=== PATIENT | male | born 1940 | race Caucasian/White ===

== ENCOUNTER 2024-04-20 10:04 | Inpatient (IN) | payer MEDICARE ==
[2024-04-19 13:11] VITALS: PULSE 51; RESP 15; O2SAT 97
[2024-04-19 13:47] LABS: BILIRUBIN,URINE NEGATIVE (Neg); CLARITY,URINE CLEAR (Clear); COLOR,URINE YELLOW (Yellow); GLUCOSE, URINE NEGATIVE (Neg); KETONES,URINE NEGATIVE (Neg); LEUKOCYTE ESTERASE ,URINE NEGATIVE (Neg); NITRITES, URINE NEGATIVE (Neg); OCCULT BLOOD,URINE NEGATIVE (Neg); PROTEIN,URINE NEGATIVE (Neg); UROBILINOGEN,URINE 0.2 E.U/dL (0.2-1.0)
[2024-04-19 13:50] LABS: UA COLLECTION TYPE VOIDED
[2024-04-19 13:53] LABS: BASOPHILS # (AUTO) 0.1 X10'3 (0-0.2); EOSINOPHILS # (AUTO) 0.3 X10'3 (0-0.9); EOSINOPHILS % (AUTO) 5.2 % (0-6); LYMPHOCYTES # (AUTO) 1.4 X10'3 (1.1-4.8); LYMPHOCYTES % (AUTO) 22.3 % (21-51); MEAN CORPUSCULAR HEMOGLOBIN 30.4 PG (27.0-31.0); MEAN CORPUSCULAR HGB CONC 33.6 g/dL (33.0-36.5); MEAN CORPUSCULAR VOLUME 90.3 FL (78-98); MEAN PLATELET VOLUME 7.2 FL (7.4-10.4); MONOCYTES # (AUTO) 0.6 X10'3 (0-0.9); MONOCYTES % (AUTO) 9.3 % (2-12); NEUTROPHILS # (AUTO) 3.8 X10'3 (1.8-7.7); NEUTROPHILS % (AUTO) 62.2 % (42-75); PRE OP HEMATOCRIT 40.4 % (42.0-52.0); PRE OP HEMOGLOBIN 13.6 g/dL (14.0-17.9); PRE OP PLATELET COUNT 168 X10'3 (140-440); PRE OP WHITE BLOOD COUNT 6.2 10'3 (4.8-10.8); RED BLOOD COUNT 4.47 X10'6 (4.70-6.10); RED CELL DISTRIBUTION WIDTH 13.9 % (11.5-14.5)
[2024-04-19 14:10] LABS: PRE OP PROTIME 10.8 SECONDS (9.0-12.0)
[2024-04-19 14:18] LABS: ALBUMIN 3.8 G/DL (3.4-5.0); ALBUMIN/GLOBULIN RATIO 1.1 (1.1-1.5); ALKALINE PHOSPHATASE 92 IU/L (46-116); BLOOD UREA NITROGEN 19 MG/DL (7-18); BUN/CREATININE RATIO 16.8 (10.0-20.0); CALCIUM 8.6 MG/DL (8.5-10.1); CHLORIDE 106 MMOL/L (99-107); CREATININE 1.13 MG/DL (0.60-1.10); PRE OP ALT 26 U/L (30-65); PRE OP ANION GAP 8 (8-16); PRE OP AST 26 U/L (10-37); PRE OP BILIRUB, TOTAL 0.5 MG/DL (0.0-1.0); PRE OP GLUCOSE 88 MG/DL (70-104); PRE OP POTASSIUM 4.4 MMOL/L (3.4-5.1); PRE OP SODIUM 141 MMOL/L (135-145); TOTAL CARBON DIOXIDE 27.4 MMOL/L (24-32); TOTAL PROTEIN 7.2 G/DL (6.4-8.2); eGFR 62 ML/MIN
[2024-04-19 14:41] LABS: HEMOGLOBIN A1C 5.7 % (4.5-6.2)
[2024-04-20] VITALS (16 sets, daily range): BP systolic 104–144; BP diastolic 54–76; PULSE 48–72; RESP 12–22; TEMP 98.6; O2SAT 40–100
[~2024-04-20] VITALS: Ht 182.9 cm; Wt 85.9 kg
[~2024-04-20 10:04] MED LIST: APIX5TAB3 PO; ATOR20TA66 PO; FLEC100T35 PO; LISI20TA28 PO; METO-395 PO; MIDAZolam 1 MG/ML 5ML VIAL IV PRN; dextrose 50%-water 50ml dispensing syringe IV PRN
[2024-04-20] MEDS: mupirocin 2% nasal ointment 1gm UD NS ONE (11:00)
[2024-04-20] MEDS: famotidine 20mg tablet PO ONE ×2 (11:00→11:55)
[2024-04-20] MEDS: metoprolol tartrate 12.5mg (1/2 tablet) PO ONE (11:01)
[2024-04-20] MEDS: ceFAZolin 1000mg inj IR ONE (13:00)
[2024-04-20] MEDS ORDERED: fentaNYL/PF 50MCG/1 ML 2ML syringe IV PRN (13:05)
[2024-04-20] MEDS ORDERED: SUfentanil 50mcg/ml 1ml amp IV ONE (13:09)
[2024-04-20] MEDS ORDERED: MIDAZolam 1mg/ml 10ml vial ONE (13:09)
[2024-04-20] MEDS ORDERED: 0.9 % SODIUM CHLORIDE 10 ML VIAL ONE (13:12)
[2024-04-20] MEDS ORDERED: LIDOcaine 2% (20mg/ml) 5ml vial ONE (13:12)
[2024-04-20] MEDS ORDERED: propofol inj 20 ML IV ONE (13:12)
[2024-04-20] MEDS ORDERED: rocuronium 10mg/ml inj IV ONE ×3 (13:12→14:44)
[2024-04-20] MEDS ORDERED: isoflurane 100ml inhalation liquid IH ONE (13:21)
[2024-04-20] MEDS: midazolam 1 mg/ML 2ml injection IV ONE ×2 (13:25→14:52)
[2024-04-20 14:08] LABS: ABG BASE EXCESS -3.4 mmol/L (-2.0-3.0); ABG HCO3 19.5 mmol/L (21.0-28.0); ABG OXYGEN SATURATION 99.4 % (94.0-98.0); ABG PCO2 (T) 29.1 mmHg (35.0-48.0); ABG PH (T) 7.445 (7.350-7.450); FCOHb 0.4 % (0.5-1.5); FHHb 0.6 % (0.0-5.0); FMetHb 0.1 % (0.0-1.5); FO2Hb 98.9 % (94.0-98.0); TOTAL HEMOGLOBIN 12.4 G/dl (13.5-17.5)
[2024-04-20 14:15] LABS: ACT @ 1.70 U 323 SEC (193-297); ACT @ 2.84 U 458 SEC (260-420); BASELINE ACT 152 SEC (101-148); PATIENT WEIGHT 86.0k KG
[2024-04-20] MEDS: cefazolin 2gm/D5W 100mL 100 ML IV ONE (14:47)
[2024-04-20] MEDS: Insulin Reg/NS 100units/100mL 100 ML IV SCH ×2 (14:48→18:53)
[2024-04-20] MEDS: ringers solution, lacted 1,000 ML IV SCH (14:48)
[2024-04-20] MEDS: ceFAZolin 1000mg inj ONE (14:49)
[2024-04-20] MEDS: vancomycin 1,500 MG in NS 300ml IV soln IV ONE (14:49)
[2024-04-20] MEDS: vancomycin 1,000mg inj ONE ×2 (14:49→17:05)
[2024-04-20] MEDS: epiNEPHrine 1 mg/ml inj ONE (14:49)
[2024-04-20] MEDS: DOCUMENT DATE & TIME OF BETA-BLOCKER PO ONE (14:49)
[2024-04-20] MEDS: FENTANYL-0.9 % NACL/PF 100 ML IV SCH (14:51)
[2024-04-20] MEDS: midazolam 100mg in NS 100ml 100 ML IV SCH (14:51)
[2024-04-20] MEDS: mineral oil/petrolatum ophthal oint EACHEYE SCH (14:52)
[2024-04-20] MEDS ORDERED: dexmedetomidin/NS 400mcg/100ml 100 ML IV PRN (14:55)
[2024-04-20 15:10] LABS: ABG BASE EXCESS 0.1 mmol/L (-2.0-3.0); ABG OXYGEN SATURATION 99.6 % (94.0-98.0); ABG PCO2 (T) 31.7 mmHg (35.0-48.0); ABG PH (T) 7.486 (7.350-7.450); FCOHb 0.3 % (0.5-1.5); FHHb 0.4 % (0.0-5.0); FMetHb 0.3 % (0.0-1.5); TOTAL HEMOGLOBIN 9.5 G/dl (13.5-17.5)
[2024-04-20 15:36] LABS: ABG BASE EXCESS -0.2 mmol/L (-2.0-3.0); ABG HCO3 24.8 mmol/L (21.0-28.0); ABG OXYGEN SATURATION 99.4 % (94.0-98.0); ABG PCO2 (T) 33.7 mmHg (35.0-48.0); ABG PH (T) 7.462 (7.350-7.450); FCOHb 0.2 % (0.5-1.5); FHHb 0.6 % (0.0-5.0); FO2Hb 99.2 % (94.0-98.0); TOTAL HEMOGLOBIN 10.5 G/dl (13.5-17.5)
[2024-04-20 16:34] LABS: ABG HCO3 22.8 mmol/L (21.0-28.0); ABG OXYGEN SATURATION 99.1 % (94.0-98.0); ABG PCO2 (T) 37.1 mmHg (35.0-48.0); ABG PH (T) 7.402 (7.350-7.450); FCOHb 0.2 % (0.5-1.5); FHHb 0.9 % (0.0-5.0); FMetHb 0.1 % (0.0-1.5); FO2Hb 98.8 % (94.0-98.0); TOTAL HEMOGLOBIN 10.5 G/dl (13.5-17.5)
[2024-04-20 16:41] LABS: ABG BASE EXCESS 0.6 mmol/L (-2.0-3.0); ABG HCO3 22.4 mmol/L (21.0-28.0); ABG OXYGEN SATURATION 99.3 % (94.0-98.0); ABG PCO2 (T) 26.7 mmHg (35.0-48.0); ABG PH (T) 7.542 (7.350-7.450); FCOHb 0.3 % (0.5-1.5); FHHb 0.7 % (0.0-5.0); FMetHb 0.3 % (0.0-1.5); FO2Hb 98.7 % (94.0-98.0); TOTAL HEMOGLOBIN 9.5 G/dl (13.5-17.5)
[2024-04-20 16:49] LABS: ABG HCO3 21.3 mmol/L (21.0-28.0); ABG OXYGEN SATURATION 99.3 % (94.0-98.0); ABG PCO2 (T) 30.9 mmHg (35.0-48.0); ABG PH (T) 7.456 (7.350-7.450); FCOHb 0.3 % (0.5-1.5); FHHb 0.7 % (0.0-5.0); FMetHb 0.2 % (0.0-1.5); FO2Hb 98.8 % (94.0-98.0); TOTAL HEMOGLOBIN 9.3 G/dl (13.5-17.5)
[2024-04-20 16:52] LABS: ACTIVATED CLOTTING TIME 121 SEC (101-148)
[2024-04-20] MEDS ORDERED: magnesium 1 GM/2 ML inj ONE ×2 (16:57)
[2024-04-20] MEDS ORDERED: LIDOcaine 1%/PF 5ML 10 MG/ML VIAL ONE ×2 (16:57)
[2024-04-20] MEDS: LIDOcaine 2% (20mg/ml) 5ml vial ONE (17:05)
[2024-04-20 17:07] LABS: ABG BASE EXCESS -2.6 mmol/L (-2.0-3.0); ABG HCO3 21.5 mmol/L (21.0-28.0); ABG OXYGEN SATURATION 99.1 % (94.0-98.0); ABG PH (T) 7.418 (7.350-7.450); FCOHb 0.3 % (0.5-1.5); FHHb 0.9 % (0.0-5.0); FMetHb 0.2 % (0.0-1.5); FO2Hb 98.6 % (94.0-98.0); TOTAL HEMOGLOBIN 9.1 G/dl (13.5-17.5)
[2024-04-20] MEDS ORDERED: ceFAZolin 1000mg inj ONE (17:07)
[2024-04-20] MEDS ORDERED: ondansetron/PF 4mg/2ml inj ONE (17:12)
[2024-04-20] MEDS ORDERED: dexamethasone sod phosphate 4mg/ml inj. ONE (17:12)
[2024-04-20 17:57] LABS: ABG BASE EXCESS -2.7 mmol/L (-2.0-3.0); ABG HCO3 21.3 mmol/L (21.0-28.0); ABG OXYGEN SATURATION 99.6 % (94.0-98.0); ABG PCO2 (T) 31.9 mmHg (35.0-48.0); ABG PH (T) 7.436 (7.350-7.450); FCOHb 0.3 % (0.5-1.5); FHHb 0.4 % (0.0-5.0); FMetHb 0.3 % (0.0-1.5); MODE VENT - SIMV/VC; PATIENT TEMPERATURE 35.7; PEEP 5 cm H2O; RESPIRATORY RATE 12 b/min; TIDAL VOLUME 600 mL; TOTAL HEMOGLOBIN 10.4 G/dl (13.5-17.5)
[2024-04-20] MEDS ORDERED: magnesium sulf-water 4G/100mL 100 ML IV PRN (18:25)
[2024-04-20] MEDS ORDERED: insulin glargine (Lantus) pen - multi-dose SQ PRN (18:25)
[2024-04-20] MEDS ORDERED: HYDROcodone/acetaminophen 10/325mg tab PO PRN (18:25)
[2024-04-20] MEDS ORDERED: morphine 2 MG/ML inj. syringe IV PRN (18:25)
[2024-04-20] MEDS ORDERED: dextrose 50%-water 50ml dispensing syringe IV PRN (18:25)
[2024-04-20] MEDS ORDERED: bisacodyl 10mg suppository rectal RC PRN (18:25)
[2024-04-20] MEDS ORDERED: morphine 4 MG/ML inj SYRINge IV PRN (18:25)
[2024-04-20] MEDS ORDERED: niCARDipine-NS 40mg/200ml IVPB 200 ML IV PRN (18:25)
[2024-04-20] MEDS ORDERED: potassium Cl 40MEQ/1/2NS 520ml 520 ML IV PRN (18:25)
[2024-04-20] MEDS ORDERED: potassium CL 10mEq/100ml bag 100 ML IV PRN (18:25)
[2024-04-20] MEDS ORDERED: mineral oil 133ml enema RC PRN (18:25)
[2024-04-20] MEDS ORDERED: metoclopramide 5 mg/ml inj IV PRN (18:25)
[2024-04-20] MEDS ORDERED: sodium phosphate inj. 30 MMOL in dextrose 5%-water 250 ML IV PRN (18:25)
[2024-04-20] MEDS ORDERED: magnesium hydroxide 30ml (MOM) UD suspension PO PRN (18:25)
[2024-04-20] MEDS ORDERED: Neutra Phos packet PO PRN (18:25)
[2024-04-20] MEDS ORDERED: acetaminophen 325mg tablet PO PRN (18:25)
[2024-04-20] MEDS ORDERED: ondansetron/PF 4mg/2ml inj IV PRN (18:25)
[2024-04-20 18:34] LABS: BASOPHILS % (AUTO) 0.3 % (0-1); EOSINOPHILS # (AUTO) 0.2 X10'3 (0-0.9); EOSINOPHILS % (AUTO) 1.7 % (0-6); HEMATOCRIT 29.1 % (42.0-52.0); HEMOGLOBIN 9.7 g/dl (14.0-17.9); LYMPHOCYTES # (AUTO) 1.2 X10'3 (1.1-4.8); LYMPHOCYTES % (AUTO) 9.5 % (21-51); MEAN CORPUSCULAR HEMOGLOBIN 30.3 PG (27.0-31.0); MEAN CORPUSCULAR HGB CONC 33.4 g/dL (33.0-36.5); MEAN CORPUSCULAR VOLUME 90.7 FL (78-98); MEAN PLATELET VOLUME 7.4 FL (7.4-10.4); MONOCYTES # (AUTO) 0.6 X10'3 (0-0.9); MONOCYTES % (AUTO) 4.6 % (2-12); NEUTROPHILS # (AUTO) 10.4 X10'3 (1.8-7.7); NEUTROPHILS % (AUTO) 83.9 % (42-75); PLATELET COUNT 100 X10'3 (140-440); RED BLOOD COUNT 3.21 X10'6 (4.70-6.10); RED CELL DISTRIBUTION WIDTH 13.9 % (11.5-14.5); WHITE BLOOD COUNT 12.3 X10'3 (4.5-11.0)
[2024-04-20 18:43] LABS: ALANINE AMINOTRANSFERASE 18 U/L (12-78); ALBUMIN 2.7 G/DL (3.4-5.0); ALBUMIN/GLOBULIN RATIO 1.5 (1.1-1.5); ALKALINE PHOSPHATASE 45 IU/L (46-116); ANION GAP 13 (8-16); ASPARTATE AMINO TRANSFERASE 33 U/L (10-37); BILIRUBIN,TOTAL 0.7 MG/DL (0.1-1.0); BLOOD UREA NITROGEN 15 MG/DL (7-18); BUN/CREATININE RATIO 14.9 (10.0-20.0); CALCIUM 7.7 MG/DL (8.5-10.1); CHLORIDE 107 MMOL/L (99-107); CREATININE 1.01 MG/DL (0.60-1.10); GLUCOSE 139 MG/DL (70-104); MAGNESIUM 3.2 MG/DL (1.5-2.4); PHOSPHORUS 2.3 MG/DL (2.3-4.5); SODIUM 142 MMOL/L (135-145); TOTAL CARBON DIOXIDE 22.2 MMOL/L (24-32); TOTAL PROTEIN 4.5 G/DL (6.4-8.2); eCRCL 63 ML/MIN; eGFR 71 ML/MIN
[2024-04-20 18:44] LABS: POTASSIUM 4.1 MMOL/L (3.5-5.1)
[2024-04-20] MEDS: niCARDipine-NS 40mg/200ml IVPB 200 ML IV PRN (18:52)
[2024-04-20] MEDS: sodium chloride 0.45% 1,000 ML IV SCH (18:53)
[2024-04-20] MEDS: vancomycin/NS 1 GM ADD-VANTAGE 250 ML IV SCH (19:25)
[2024-04-20] MEDS: atorvastatin 10mg tablet PO SCH (19:25)
[2024-04-20] MEDS: mupirocin 2% nasal ointment 1gm UD NS SCH (19:25)
[2024-04-20] MEDS: potassium Cl 20mEq/100mL bag 100 ML IV PRN (19:25)
[2024-04-20] MEDS: sennosides/docusate sodium tablet PO SCH (19:25)
[2024-04-20] MEDS: acetaminophen 325mg tablet PO PRN (19:26)
[2024-04-20] MEDS: sodium phosphate inj. 15 MMOL in dextrose 5%-water 250 ML IV PRN (20:25)
[2024-04-20] MEDS: albumin (Human) 5% 250ml 250 ML IV PRN (21:27)
[2024-04-20 21:50] LABS: ABG BASE EXCESS -9.5 mmol/L (-2.0-3.0); ABG HCO3 16.4 mmol/L (21.0-28.0); ABG OXYGEN SATURATION 97.7 % (94.0-98.0); ABG PCO2 (T) 34.7 mmHg (35.0-48.0); ABG PH (T) 7.288 (7.350-7.450); ABG PO2 (T) 110.7 mmHg (83.0-108.0); FCOHb 0.2 % (0.5-1.5); FHHb 2.3 % (0.0-5.0); FMetHb 0.2 % (0.0-1.5); FO2Hb 97.3 % (94.0-98.0); MODE spont 10/5; PATIENT TEMPERATURE 36.2; TOTAL HEMOGLOBIN 12.6 G/dl (13.5-17.5)
[2024-04-20] MEDS: sodium bicarbonate (8.4%) 1 mEq/ml syringe IV ONE (22:10)
[2024-04-20 22:51] LABS: ABG BASE EXCESS -8.7 mmol/L (-2.0-3.0); ABG HCO3 16.2 mmol/L (21.0-28.0); ABG OXYGEN SATURATION 98.6 % (94.0-98.0); ABG PCO2 (T) 30.6 mmHg (35.0-48.0); ABG PH (T) 7.337 (7.350-7.450); ABG PO2 (T) 144.9 mmHg (83.0-108.0); FCOHb 0.3 % (0.5-1.5); FHHb 1.4 % (0.0-5.0); FMetHb 0.3 % (0.0-1.5); MODE spont 10/5; PATIENT TEMPERATURE 36.3; TOTAL HEMOGLOBIN 11.6 G/dl (13.5-17.5)
[2024-04-20] MEDS: dexmedetomidin/NS 400mcg/100ml 100 ML IV PRN (23:08)
[2024-04-21] VITALS (31 sets, daily range): BP systolic 110–142; BP diastolic 50–71; PULSE 70–71; RESP 9–23; O2SAT 93–99
[2024-04-21] MEDS: ceFAZolin/D5W- 1GM premix 50 ML IV SCH (00:03)
[2024-04-21 00:26] LABS: BASOPHILS % (AUTO) 0.1 % (0-1); EOSINOPHILS % (AUTO) 0 % (0-6); HEMATOCRIT 31.7 % (42.0-52.0); HEMOGLOBIN 10.7 g/dl (14.0-17.9); LYMPHOCYTES # (AUTO) 0.2 X10'3 (1.1-4.8); LYMPHOCYTES % (AUTO) 2.6 % (21-51); MEAN CORPUSCULAR HEMOGLOBIN 30.7 PG (27.0-31.0); MEAN CORPUSCULAR HGB CONC 33.9 g/dL (33.0-36.5); MEAN CORPUSCULAR VOLUME 90.8 FL (78-98); MEAN PLATELET VOLUME 7.5 FL (7.4-10.4); MONOCYTES # (AUTO) 0.5 X10'3 (0-0.9); MONOCYTES % (AUTO) 5.7 % (2-12); NEUTROPHILS # (AUTO) 8.3 X10'3 (1.8-7.7); NEUTROPHILS % (AUTO) 91.6 % (42-75); RED BLOOD COUNT 3.49 X10'6 (4.70-6.10); WHITE BLOOD COUNT 9.1 X10'3 (4.5-11.0)
[2024-04-21 00:43] LABS: ALBUMIN 3.6 G/DL (3.4-5.0); ANION GAP 15 (8-16); BLOOD UREA NITROGEN 15 MG/DL (7-18); BUN/CREATININE RATIO 9.9 (10.0-20.0); CALCIUM 7.5 MG/DL (8.5-10.1); CHLORIDE 108 MMOL/L (99-107); CREATININE 1.51 MG/DL (0.60-1.10); GLUCOSE 152 MG/DL (70-104); MAGNESIUM 2.6 MG/DL (1.5-2.4); PHOSPHORUS 2.3 MG/DL (2.3-4.5); POTASSIUM 3.5 MMOL/L (3.5-5.1); SODIUM 144 MMOL/L (135-145); TOTAL CARBON DIOXIDE 20.9 MMOL/L (24-32); eCRCL 42 ML/MIN; eGFR 45 ML/MIN
[2024-04-21] MEDS: potassium Cl 40MEQ/270ML bag 250 ML IV PRN (01:09)
[2024-04-21 01:13] LABS: PLATELET COUNT 92 X10'3 (140-440)
[2024-04-21 05:49] LABS: ALANINE AMINOTRANSFERASE 35 U/L (12-78); ALBUMIN 3.6 G/DL (3.4-5.0); ALBUMIN/GLOBULIN RATIO 1.9 (1.1-1.5); ALKALINE PHOSPHATASE 45 IU/L (46-116); ANION GAP 8 (8-16); ASPARTATE AMINO TRANSFERASE 271 U/L (10-37); BILIRUBIN,TOTAL 0.7 MG/DL (0.1-1.0); BLOOD UREA NITROGEN 19 MG/DL (7-18); BUN/CREATININE RATIO 16.8 (10.0-20.0); CHLORIDE 110 MMOL/L (99-107); CREATININE 1.13 MG/DL (0.60-1.10); GLUCOSE 163 MG/DL (70-104); MAGNESIUM 2.3 MG/DL (1.5-2.4); PHOSPHORUS 2.1 MG/DL (2.3-4.5); POTASSIUM 4.5 MMOL/L (3.5-5.1); SODIUM 141 MMOL/L (135-145); TOTAL CARBON DIOXIDE 23.3 MMOL/L (24-32); TOTAL PROTEIN 5.5 G/DL (6.4-8.2); eCRCL 56 ML/MIN; eGFR 62 ML/MIN
[2024-04-21] MEDS: magnesium sulf-water 2g/50mL 50 ML IV PRN (05:53)
[2024-04-21 05:55] LABS: BASOPHILS % (AUTO) 0.3 % (0-1); EOSINOPHILS % (AUTO) 0.3 % (0-6); HEMOGLOBIN 10.8 g/dl (14.0-17.9); LYMPHOCYTES # (AUTO) 0.3 X10'3 (1.1-4.8); LYMPHOCYTES % (AUTO) 4.2 % (21-51); MEAN CORPUSCULAR HEMOGLOBIN 30.5 PG (27.0-31.0); MEAN CORPUSCULAR HGB CONC 33.9 g/dL (33.0-36.5); MEAN PLATELET VOLUME 7.7 FL (7.4-10.4); MONOCYTES # (AUTO) 0.2 X10'3 (0-0.9); MONOCYTES % (AUTO) 2.4 % (2-12); NEUTROPHILS % (AUTO) 92.8 % (42-75); PLATELET COUNT 73 X10'3 (140-440); RED BLOOD COUNT 3.56 X10'6 (4.70-6.10); WHITE BLOOD COUNT 7.5 X10'3 (4.5-11.0)
[2024-04-21 06:11] LABS: APTT 25 SECONDS (22-32); INR 1.1 INR; PROTHROMBIN TIME 11.9 SECONDS (9.0-12.0)
[2024-04-21] MEDS: aspirin 81mg tab.chew PO SCH (08:15)
[2024-04-21] MEDS: metoprolol tartrate 12.5mg (1/2 tablet) PO SCH (08:15)
[2024-04-21 09:05] LABS: ABG BASE EXCESS -5.4 mmol/L (-2.0-3.0); ABG HCO3 16.1 mmol/L (21.0-28.0); ABG OXYGEN SATURATION 98.9 % (94.0-98.0); ABG PCO2 (T) 20.7 mmHg (35.0-48.0); ABG PH (T) 7.509 (7.350-7.450); ABG PO2 (T) 144.4 mmHg (83.0-108.0); FCOHb 0.3 % (0.5-1.5); FHHb 1.1 % (0.0-5.0); FMetHb 0.3 % (0.0-1.5); FO2Hb 98.3 % (94.0-98.0); MODE VENT - CPAP; TOTAL HEMOGLOBIN 9.9 G/dl (13.5-17.5)
[2024-04-21] MEDS: HYDROcodone/acetaminophen 10/325mg tab PO PRN (14:56)
[2024-04-21] MEDS: heparin, porcine 5000 units/ml vial SQ SCH (16:11)
[2024-04-22] VITALS (25 sets, daily range): BP systolic 99–150; BP diastolic 55–79; PULSE 70–71; RESP 14–28; O2SAT 94–97
[2024-04-22 02:15] LABS: BASOPHILS % (AUTO) 0 % (0-1); EOSINOPHILS % (AUTO) 0 % (0-6); HEMOGLOBIN 9.9 g/dl (14.0-17.9); LYMPHOCYTES # (AUTO) 0.6 X10'3 (1.1-4.8); LYMPHOCYTES % (AUTO) 3.9 % (21-51); MEAN CORPUSCULAR HEMOGLOBIN 30.1 PG (27.0-31.0); MEAN CORPUSCULAR VOLUME 91.5 FL (78-98); MEAN PLATELET VOLUME 8.1 FL (7.4-10.4); MONOCYTES % (AUTO) 6.6 % (2-12); NEUTROPHILS # (AUTO) 13.6 X10'3 (1.8-7.7); NEUTROPHILS % (AUTO) 89.5 % (42-75); PLATELET COUNT 82 X10'3 (140-440); RED BLOOD COUNT 3.28 X10'6 (4.70-6.10); RED CELL DISTRIBUTION WIDTH 14.5 % (11.5-14.5); WHITE BLOOD COUNT 15.2 X10'3 (4.5-11.0)
[2024-04-22 02:27] LABS: ALBUMIN 3.2 G/DL (3.4-5.0); ANION GAP 9 (8-16); BLOOD UREA NITROGEN 24 MG/DL (7-18); BUN/CREATININE RATIO 22.9 (10.0-20.0); CALCIUM 7.7 MG/DL (8.5-10.1); CHLORIDE 101 MMOL/L (99-107); CREATININE 1.05 MG/DL (0.60-1.10); GLUCOSE 181 MG/DL (70-104); MAGNESIUM 2.4 MG/DL (1.5-2.4); PHOSPHORUS 3.6 MG/DL (2.3-4.5); POTASSIUM 4.4 MMOL/L (3.5-5.1); SODIUM 135 MMOL/L (135-145); TOTAL CARBON DIOXIDE 24.8 MMOL/L (24-32); eCRCL 61 ML/MIN; eGFR 68 ML/MIN
[2024-04-22] MEDS: potassium Cl 20 mEq SR tablet PO PRN (02:46)
[2024-04-22] MEDS: pantoprazole 40mg Tablet.DR PO SCH (07:14)
[2024-04-22] MEDS: furosemide 40mg/4ml inj IV ONE (08:01)
[2024-04-22] MEDS ORDERED: dextrose 50%-water 50ml dispensing syringe IV PRN ×2 (08:25)
[2024-04-22] MEDS ORDERED: glucagon, human recombinant 1mg kit SUBCUT PRN (08:25)
[2024-04-22] MEDS ORDERED: DEXTROSE 15 GM of carb/4 tabs (each vial/BOTTLE has 4 tablets) PO PRN ×2 (08:25)
[2024-04-22] MEDS: INSULIN LISPRO 100 UNIT/ML INSULN.PEN MULTI-DOSE SQ SCH ×2 (10:58→13:56)
[2024-04-22] MEDS: JUVEN Smoothie Arginine/Glut./Ca2+Bmb (Juven 19.3pkt) 240ml cup PO SCH (13:17)
[2024-04-22] MEDS: diphenhydrAMINE 50 mg/ml inj IV PRN (21:01)
[2024-04-22] MEDS: insulin glargine (Lantus) pen - multi-dose SQ SCH (21:03)
[2024-04-23] VITALS (20 sets, daily range): BP systolic 101–141; BP diastolic 50–74; PULSE 63–114; RESP 14–26; TEMP 97.7–98.4; O2SAT 93–98
[2024-04-23 02:20] LABS: BASOPHILS % (AUTO) 0.1 % (0-1); EOSINOPHILS % (AUTO) 0 % (0-6); HEMATOCRIT 29.9 % (42.0-52.0); HEMOGLOBIN 9.8 g/dl (14.0-17.9); LYMPHOCYTES % (AUTO) 8.1 % (21-51); MEAN CORPUSCULAR HEMOGLOBIN 29.6 PG (27.0-31.0); MEAN CORPUSCULAR HGB CONC 32.9 g/dL (33.0-36.5); MEAN PLATELET VOLUME 8.2 FL (7.4-10.4); MONOCYTES % (AUTO) 8.3 % (2-12); NEUTROPHILS # (AUTO) 10.2 X10'3 (1.8-7.7); NEUTROPHILS % (AUTO) 83.5 % (42-75); RED BLOOD COUNT 3.32 X10'6 (4.70-6.10); RED CELL DISTRIBUTION WIDTH 14.1 % (11.5-14.5); WHITE BLOOD COUNT 12.2 X10'3 (4.5-11.0)
[2024-04-23 02:30] LABS: PLATELET COUNT 76 X10'3 (140-440)
[2024-04-23 02:36] LABS: ANION GAP 5 (8-16); BLOOD UREA NITROGEN 25 MG/DL (7-18); BUN/CREATININE RATIO 27.2 (10.0-20.0); CALCIUM 7.8 MG/DL (8.5-10.1); CHLORIDE 104 MMOL/L (99-107); CREATININE 0.92 MG/DL (0.60-1.10); GLUCOSE 114 MG/DL (70-104); MAGNESIUM 2.2 MG/DL (1.5-2.4); PHOSPHORUS 1.9 MG/DL (2.3-4.5); POTASSIUM 4.2 MMOL/L (3.5-5.1); SODIUM 136 MMOL/L (135-145); TOTAL CARBON DIOXIDE 27.1 MMOL/L (24-32); eCRCL 69 ML/MIN; eGFR 79 ML/MIN
[2024-04-23] MEDS: furosemide 40mg/4ml inj IV ONE (07:48)
[2024-04-23] MEDS ORDERED: potassium Cl 40MEQ/270ML bag 250 ML IV PRN (09:55)
[2024-04-23] MEDS ORDERED: potassium Cl 20mEq/100mL bag 100 ML IV PRN (09:55)
[2024-04-23] MEDS ORDERED: magnesium sulf-water 4G/100mL 100 ML IV PRN (09:55)
[2024-04-23] MEDS ORDERED: magnesium sulf-water 2g/50mL 50 ML IV PRN (09:55)
[2024-04-23] MEDS ORDERED: potassium Cl 40MEQ/1/2NS 520ml 520 ML IV PRN (09:55)
[2024-04-23] MEDS ORDERED: potassium CL 10mEq/100ml bag 100 ML IV PRN (09:55)
[2024-04-23 11:43] LABS: ABG PO2 (T) 320.4 mmHg (83.0-108.0)
[2024-04-23 11:44] LABS: ABG PO2 (T) 480.2 mmHg (83.0-108.0)
[2024-04-23 11:44] LABS: ABG PO2 (T) 456.8 mmHg (83.0-108.0)
[2024-04-23 11:45] LABS: ABG PO2 (T) 417.3 mmHg (83.0-108.0)
[2024-04-23 11:46] LABS: ABG PO2 (T) 421.3 mmHg (83.0-108.0)
[2024-04-23 11:46] LABS: ABG PO2 (T) 466.8 mmHg (83.0-108.0)
[2024-04-23 11:47] LABS: ABG PO2 (T) 340.8 mmHg (83.0-108.0)
[2024-04-23 11:54] LABS: ABG BASE EXCESS -2.1 mmol/L (-2.0-3.0); ABG HCO3 21.8 mmol/L (21.0-28.0); ABG OXYGEN SATURATION 96.3 % (94.0-98.0); ABG PCO2 (T) 35.1 mmHg (35.0-48.0); ABG PH (T) 7.412 (7.350-7.450); ABG PO2 (T) 89.2 mmHg (83.0-108.0); ALLEN'S TEST POSITIVE; FCOHb 0.3 % (0.5-1.5); FHHb 3.7 % (0.0-5.0); FMetHb 0.3 % (0.0-1.5); FO2Hb 95.7 % (94.0-98.0); MODE ROOM AIR; TOTAL HEMOGLOBIN 14.2 G/dl (13.5-17.5)
[2024-04-23] MEDS: magnesium Cl slow-release 64mg tablet PO SCH (20:00)
[2024-04-24 02:00] VITALS: BP 127/65; PULSE 65; RESP 19; TEMP 98.4; O2SAT 95
[2024-04-24 06:00] VITALS: BP 129/66; PULSE 62; RESP 18; TEMP 99.4; O2SAT 96
[2024-04-24 07:25] LABS: BASOPHILS % (AUTO) 0.2 % (0-1); EOSINOPHILS % (AUTO) 0.4 % (0-6); HEMATOCRIT 27.6 % (42.0-52.0); HEMOGLOBIN 9.5 g/dl (14.0-17.9); LYMPHOCYTES % (AUTO) 12.5 % (21-51); MEAN CORPUSCULAR HGB CONC 34.4 g/dL (33.0-36.5); MEAN CORPUSCULAR VOLUME 90.1 FL (78-98); MEAN PLATELET VOLUME 8.2 FL (7.4-10.4); MONOCYTES # (AUTO) 0.8 X10'3 (0-0.9); MONOCYTES % (AUTO) 9.5 % (2-12); NEUTROPHILS # (AUTO) 6.1 X10'3 (1.8-7.7); NEUTROPHILS % (AUTO) 77.4 % (42-75); PLATELET COUNT 94 X10'3 (140-440); RED BLOOD COUNT 3.07 X10'6 (4.70-6.10); RED CELL DISTRIBUTION WIDTH 13.9 % (11.5-14.5); WHITE BLOOD COUNT 7.9 X10'3 (4.5-11.0)
[2024-04-24 07:40] LABS: ALBUMIN 2.8 G/DL (3.4-5.0); ANION GAP 6 (8-16); BLOOD UREA NITROGEN 21 MG/DL (7-18); BUN/CREATININE RATIO 21.4 (10.0-20.0); CALCIUM 7.8 MG/DL (8.5-10.1); CHLORIDE 104 MMOL/L (99-107); CREATININE 0.98 MG/DL (0.60-1.10); GLUCOSE 90 MG/DL (70-104); MAGNESIUM 2.1 MG/DL (1.5-2.4); POTASSIUM 3.9 MMOL/L (3.5-5.1); SODIUM 136 MMOL/L (135-145); TOTAL CARBON DIOXIDE 25.6 MMOL/L (24-32); eCRCL 65 ML/MIN; eGFR 73 ML/MIN
[2024-04-24 08:00] VITALS: RESP 18; O2SAT 96
[2024-04-24] MEDS: potassium Cl 20 mEq SR tablet PO PRN ×2 (08:10→08:13)
[2024-04-24 08:14] VITALS: BP_SYST 129; PULSE 64
[2024-04-24] MEDS ORDERED: HYDR-3972 PO (08:51)
[2024-04-24] MEDS ORDERED: ASPI81TA53 PO (08:51)
[2024-04-24 12:23] LABS: ABG PO2 (T) 388.5 mmHg (83.0-108.0)
== END 2024-04-24 10:35 | disposition home health service (06) | DRG 228 ==
LOC: PAS IN 10:04 → CICU 2S 14:22 → PCU 3S 04-23 16:30
PROVIDERS: ADMIT Thoracic Surgery (Cardiothoracic Vascular Surgery); ATTEND Thoracic Surgery (Cardiothoracic Vascular Surgery)
PROC: 5A1221Z Performance of Cardiac Output, Continuous (ICD-10-PCS; 2024-04-20)
PROC: 5A2204Z Restoration of Cardiac Rhythm, Single (ICD-10-PCS; 2024-04-20)
PROC: 0W9930Z Drainage of Right Pleural Cavity with Drainage Device, Percutaneous Approach (ICD-10-PCS; 2024-04-20)
PROC: B24BZZ4 Ultrasonography of Heart with Aorta, Transesophageal (ICD-10-PCS; 2024-04-20)
PROC: 02W Heart and Great Vessels, Revision (ICD-10-PCS; principal; 2024-04-20 13:21)
DX: I34.0 Nonrheumatic mitral (valve) insufficiency (principal); N17.0 Acute kidney failure with tubular necrosis; I47.20 Ventricular tachycardia, unspecified; I48.91 Unspecified atrial fibrillation; I27.20 Pulmonary hypertension, unspecified
CPT/HCPCS: 36415; 36600; 71045; 71046; 76376; 80048; 80053; 81003; 82800; 82803; 82948; 83036; 83605; 83735; 84100; 85018; 85025; 85347; 85610; 85730; 86885; 86900; 86901; 86920; 87081; 93005; 93312; 93325; 93880; 93970; 94002; 94010; 94668; 94760; 97116; 97161; 97530; A4615; A4618; A6258; A6449; A7000; A7048; C1751; C1758; G0378; J0171; J0690; J1100; J1200; J1250; J1644; J1815; J1940; J2150; J2250; J2370; J2405; J2704; J2720; J3370; J3475; J3480; J3490; J7030; J7040; J7050; J7060; J7120; P9045; P9047

== ENCOUNTER 2024-05-28 07:06 | Day surgery (SDC) | payer MEDICARE ==
[~2024-05-28] VITALS: Ht 182.9 cm; Wt 88.0 kg
[2024-05-28] VITALS (12 sets, daily range): BP systolic 100–140; BP diastolic 64–88; PULSE 47–88; RESP 14–16; TEMP 97.3; O2SAT 99–100
[~2024-05-28 07:06] MED LIST changes: +ASPI81TA53 PO; +HYDR-3972 PO; -LISI20TA28 PO; -MIDAZolam 1 MG/ML 5ML VIAL IV PRN; -dextrose 50%-water 50ml dispensing syringe IV PRN
[2024-05-28] MEDS ORDERED: normal saline 1000ml 1,000 ML IV SCH (07:35)
[2024-05-28] MEDS ORDERED: LISI20TA28 PO (07:42)
[2024-05-28] MEDS ORDERED: ASPI-611 PO (07:42)
[2024-05-28 07:56] LABS: BASOPHILS # (AUTO) 0.1 X10'3 (0-0.2); BASOPHILS % (AUTO) 1.3 % (0-1); EOSINOPHILS # (AUTO) 0.2 X10'3 (0-0.9); EOSINOPHILS % (AUTO) 3.6 % (0-6); HEMATOCRIT 36.2 % (42.0-52.0); LYMPHOCYTES % (AUTO) 19.2 % (21-51); MEAN CORPUSCULAR HEMOGLOBIN 29.5 PG (27.0-31.0); MEAN CORPUSCULAR HGB CONC 33.2 g/dL (33.0-36.5); MEAN CORPUSCULAR VOLUME 88.8 FL (78-98); MEAN PLATELET VOLUME 7.1 FL (7.4-10.4); MONOCYTES # (AUTO) 0.4 X10'3 (0-0.9); MONOCYTES % (AUTO) 7.8 % (2-12); NEUTROPHILS # (AUTO) 3.6 X10'3 (1.8-7.7); NEUTROPHILS % (AUTO) 68.1 % (42-75); PLATELET COUNT 168 X10'3 (140-440); RED BLOOD COUNT 4.08 X10'6 (4.70-6.10); RED CELL DISTRIBUTION WIDTH 14.4 % (11.5-14.5); WHITE BLOOD COUNT 5.3 X10'3 (4.5-11.0)
[2024-05-28 08:16] LABS: ALBUMIN 3.5 G/DL (3.4-5.0); ANION GAP 6 (8-16); BLOOD UREA NITROGEN 20 MG/DL (7-18); BUN/CREATININE RATIO 16.3 (10.0-20.0); CALCIUM 8.5 MG/DL (8.5-10.1); CHLORIDE 104 MMOL/L (99-107); CREATININE 1.23 MG/DL (0.60-1.10); GLUCOSE 114 MG/DL (70-104); POTASSIUM 4.2 MMOL/L (3.5-5.1); SODIUM 137 MMOL/L (135-145); TOTAL CARBON DIOXIDE 26.9 MMOL/L (24-32); eCRCL 52 ML/MIN; eGFR 56 ML/MIN
[2024-05-28 08:19] LABS: INR 1.1 INR; PROTHROMBIN TIME 11.5 SECONDS (9.0-12.0)
[2024-05-28] MEDS: glycopyrrolate 0.2mg/ml inj IV ONE (10:40)
[2024-05-28] MEDS: fentaNYL/PF 50MCG/1 ML 2ML syringe IV ONE (10:42)
[2024-05-28] MEDS: MIDAZolam 1mg/ml 10ml vial IV ONE (10:42)
== END 2024-05-28 11:55 | disposition home or self-care (01) ==
LOC: SSTAY O 07:06
PROVIDERS: ATTEND Internal Medicine Cardiovascular Disease
DX: I48.91 Unspecified atrial fibrillation (principal); I44.7 Left bundle-branch block, unspecified; I10 Essential (primary) hypertension; E78.00 Pure hypercholesterolemia, unspecified; Z87.891 Personal history of nicotine dependence; Z79.01 Long term (current) use of anticoagulants; Z79.82 Long term (current) use of aspirin; Z79.899 Other long term (current) drug therapy; Z95.2 Presence of prosthetic heart valve; Z98.890 Other specified postprocedural states; Z80.9 Family history of malignant neoplasm, unspecified
CPT/HCPCS: 36415; 80048; 83735; 85025; 85610; 92960; 93005; J2250; J3010; J7030; Z7610

== ENCOUNTER 2024-09-10 06:33 | Day surgery (SDC) | payer MEDICARE ==
[2024-09-10] VITALS (9 sets, daily range): BP systolic 106–133; BP diastolic 53–82; PULSE 53–64; RESP 12–18; TEMP 97.9; O2SAT 95–98
[~2024-09-10] VITALS: Ht 180.3 cm; Wt 88.4 kg
[~2024-09-10 06:33] MED LIST changes: +ASPI-611 PO; -ASPI81TA53 PO; -ATOR20TA66 PO; -HYDR-3972 PO; +LISI20TA28 PO; +ceFAZolin 2gm in dextrose, iso 50 ML IV ONE
[2024-09-10 07:28] LABS: BASOPHILS # (AUTO) 0.1 X10'3 (0-0.2); BASOPHILS % (AUTO) 1.1 % (0-1); EOSINOPHILS # (AUTO) 0.3 X10'3 (0-0.9); EOSINOPHILS % (AUTO) 5.5 % (0-6); HEMATOCRIT 40.9 % (42.0-52.0); HEMOGLOBIN 13.6 g/dl (14.0-17.9); LYMPHOCYTES # (AUTO) 1.3 X10'3 (1.1-4.8); LYMPHOCYTES % (AUTO) 23.2 % (21-51); MEAN CORPUSCULAR HEMOGLOBIN 28.9 PG (27.0-31.0); MEAN CORPUSCULAR HGB CONC 33.2 g/dL (33.0-36.5); MEAN CORPUSCULAR VOLUME 87.1 FL (78-98); MEAN PLATELET VOLUME 6.9 FL (7.4-10.4); MONOCYTES # (AUTO) 0.5 X10'3 (0-0.9); MONOCYTES % (AUTO) 9.1 % (2-12); NEUTROPHILS # (AUTO) 3.4 X10'3 (1.8-7.7); NEUTROPHILS % (AUTO) 61.1 % (42-75); PLATELET COUNT 153 X10'3 (140-440); RED CELL DISTRIBUTION WIDTH 15.8 % (11.5-14.5); WHITE BLOOD COUNT 5.5 X10'3 (4.5-11.0)
[2024-09-10 07:39] LABS: ALBUMIN 3.9 G/DL (3.4-5.0); ANION GAP 8 (8-16); BLOOD UREA NITROGEN 34 MG/DL (7-18); BUN/CREATININE RATIO 26.4 (10.0-20.0); CHLORIDE 105 MMOL/L (99-107); CREATININE 1.29 MG/DL (0.60-1.10); GLUCOSE 103 MG/DL (70-104); POTASSIUM 4.2 MMOL/L (3.5-5.1); SODIUM 138 MMOL/L (135-145); TOTAL CARBON DIOXIDE 24.9 MMOL/L (24-32); eCRCL 48 ML/MIN; eGFR 53 ML/MIN
[2024-09-10 07:42] LABS: APTT 24 SECONDS (22-32); PROTHROMBIN TIME 10.6 SECONDS (9.0-12.0)
[2024-09-10] MEDS: VANCOMYCIN/H2O 1.5g/300mL PB 300 ML IV ONE (07:46)
[2024-09-10] MEDS: normal saline 1000ml 1,000 ML IV SCH (07:46)
[2024-09-10] MEDS ORDERED: FLEC100T PO (08:15)
[2024-09-10] MEDS ORDERED: LIDOcaine 1% W/epiNEPHrine 1:100,000 20ml vial ONE (08:48)
[2024-09-10] MEDS ORDERED: midazolam 1 mg/ML 2ml injection ONE ×3 (08:48→10:52)
[2024-09-10] MEDS ORDERED: vancomycin 1,000mg inj ONE (08:48)
[2024-09-10] MEDS ORDERED: fentaNYL/PF 50MCG/1 ML 2ML syringe ONE (08:48)
[2024-09-10] MEDS ORDERED: iohexol 350 MG/ML 50ML vial IV ONE ×2 (08:48→09:28)
== END 2024-09-10 13:35 | disposition home or self-care (01) ==
LOC: SSTAY O 06:33
PROVIDERS: ATTEND Internal Medicine Cardiovascular Disease
DX: I44.7 Left bundle-branch block, unspecified (principal); I42.0 Dilated cardiomyopathy; I11.0 Hypertensive heart disease with heart failure; I48.0 Paroxysmal atrial fibrillation; I42.9 Cardiomyopathy, unspecified; I27.20 Pulmonary hypertension, unspecified; I50.22 Chronic systolic (congestive) heart failure; I34.0 Nonrheumatic mitral (valve) insufficiency; Z95.2 Presence of prosthetic heart valve; Z79.899 Other long term (current) drug therapy; Z98.890 Other specified postprocedural states
CPT/HCPCS: 33249; 36415; 71045; 80048; 83735; 85025; 85610; 85730; 93005; 93641; 99152; 99153; A4565; A6258; C1769; C1882; C1895; C1898; C1900; J2250; J3010; J3370; J3372; J3490; J7030; Q9967; Z7610

== ENCOUNTER 2024-12-02 10:44 | Inpatient (IN) | payer MEDICARE ==
[2024-12-02] VITALS (8 sets, daily range): BP systolic 95–128; BP diastolic 71–88; PULSE 118–147; RESP 14–20; TEMP 97.6–97.8; O2SAT 96–97
[~2024-12-02] VITALS: Ht 180.3 cm; Wt 89.5 kg
[~2024-12-02 10:44] MED LIST changes: +FLEC100T PO; -ceFAZolin 2gm in dextrose, iso 50 ML IV ONE
[2024-12-02] MEDS: diltiazem 5mg/ml 5ml inj. IV ONE ×2 (11:03)
[2024-12-02 11:10] LABS: BASOPHILS # (AUTO) 0.1 X10'3 (0-0.2); BASOPHILS % (AUTO) 0.8 % (0-1); EOSINOPHILS # (AUTO) 0.1 X10'3 (0-0.9); EOSINOPHILS % (AUTO) 1.6 % (0-6); HEMATOCRIT 43.5 % (42.0-52.0); HEMOGLOBIN 14.7 g/dl (14.0-17.9); LYMPHOCYTES # (AUTO) 1.5 X10'3 (1.1-4.8); LYMPHOCYTES % (AUTO) 21.6 % (21-51); MEAN CORPUSCULAR HEMOGLOBIN 30.9 PG (27.0-31.0); MEAN CORPUSCULAR HGB CONC 33.8 g/dL (33.0-36.5); MEAN CORPUSCULAR VOLUME 91.6 FL (78-98); MEAN PLATELET VOLUME 7.2 FL (7.4-10.4); MONOCYTES # (AUTO) 0.7 X10'3 (0-0.9); MONOCYTES % (AUTO) 10.6 % (2-12); NEUTROPHILS # (AUTO) 4.5 X10'3 (1.8-7.7); NEUTROPHILS % (AUTO) 65.4 % (42-75); PLATELET COUNT 170 X10'3 (140-440); RED BLOOD COUNT 4.75 X10'6 (4.70-6.10); RED CELL DISTRIBUTION WIDTH 15.7 % (11.5-14.5); WHITE BLOOD COUNT 6.9 X10'3 (4.5-11.0)
--- NOTE | 2024-12-02 11:11 | ELECTROCARDIOGRAPH REPORT ---
[facility] Test Date: 2024-12-02 Test Time: 10:49:18 Pat Name: LAKISHA MARTIN Department: EMERGENCY ROOM Room: Gender: M [employer]: BRETT : 1940 Requested By: MACARIO SAAB Order Number: [id number] Reading MD: Measurements Intervals [place] Rate: 180 P: -74 IN: 110 QRS: 120 QRSD: 202 T: -71 QT: 312 QTc: 541 Interpretive Statements Ventricular-paced complexes No further rhythm analysis attempted due to paced rhythm Probable left atrial enlargement Right bundle branch block Repol abnrm suggests ischemia, diffuse leads Please click the below link to view image of tracing.
[2024-12-02] MEDS ORDERED: FURO20TA4 PO (11:13)
[2024-12-02] MEDS ORDERED: SPIR25TA5 PO (11:13)
[2024-12-02] MEDS ORDERED: ATOR20TA66 PO (11:13)
[2024-12-02] MEDS ORDERED: SACU1TAB PO (11:13)
[2024-12-02 11:17] LABS: INR 1.2 INR; PROTHROMBIN TIME 11.7 SECONDS (9.0-12.0)
[2024-12-02 11:31] LABS: ALANINE AMINOTRANSFERASE 67 U/L (12-78); ALBUMIN 3.5 G/DL (3.4-5.0); ALBUMIN/GLOBULIN RATIO 1.2 (1.1-1.5); ALKALINE PHOSPHATASE 94 IU/L (46-116); ANION GAP 7 (8-16); ASPARTATE AMINO TRANSFERASE 45 U/L (10-37); BILIRUBIN,TOTAL 0.6 MG/DL (0.1-1.0); BLOOD UREA NITROGEN 24 MG/DL (7-18); BUN/CREATININE RATIO 15.3 (10.0-20.0); CALCIUM 8.7 MG/DL (8.5-10.1); CHLORIDE 109 MMOL/L (99-107); CREATININE 1.57 MG/DL (0.60-1.10); GLUCOSE 127 MG/DL (70-104); MAGNESIUM 2.2 MG/DL (1.5-2.4); POTASSIUM 4.2 MMOL/L (3.5-5.1); SODIUM 143 MMOL/L (135-145); TOTAL CARBON DIOXIDE 26.8 MMOL/L (24-32); TOTAL PROTEIN 6.4 G/DL (6.4-8.2); eCRCL 39 ML/MIN; eGFR 43 ML/MIN
--- NOTE | 2024-12-02 11:39 | RADIOLOGY REPORT ---
DI CHEST,SINGLE VIEW, HISTORY: SOB COMPARISON: DI CHEST,SINGLE VIEW on DOS: 09/10/24, DI CHEST,SINGLE VIEW on DOS: 04/23/24, DI CHEST,SING LE VIEW on DOS: 04/22/24 DI CHEST,SINGLE VIEW on DOS: 09/10/24, DI CHEST,SINGLE VIEW on DOS: 04/23/24, DI CHEST,SINGLE VIEW on D OS: 04/22/24 TECHNICAL DATA: 1 view of the chest was obtained. FINDINGS: Lines and tubes: There is a cardiac pacer. Cardiomediastinal silhouette: Enlarged Pulmonary vasculature: normal Lung expansion: normal Lung airspace: normal Lung interstitium: normal Pleura: normal Pneumothorax: no Bones: Unremarkable Other: no IMPRESSION: Cardiomegaly with pulmonary vascular congestion / interstitial pulmonary edema.
--- NOTE | 2024-12-02 12:01 | CONSULTATION REPORT ---
History of Present Illness Providers to CC CC: ROBERT MIDDLETON MD ~ Reason for Admit\Admit Dx: Atrial Fibrillation Refering MD: SHELLEY History of Present Illness The patient is an 84-year-old male with a history of nonischemic cardiomyopathy, bi V ICD placement in August 2024, history of mitral valve r eplacement along with redo replacement back in March of 2024, atrial fibrillation/flutter, heart failure with reduced ejection fraction, and chronic anticoagulation who presents to the emergency room today due to noted elevated heart rates and a low blood pressure. He was recently taken off of his flecainide upon his initial visit in the office. 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 Therefore, he was on no antiarrhythmic medicines. During that office visit he was also taken off of lisinopril and started on Entresto. He was advised to continue with his spironolactone and metoprolol succinate. He was however given an increased dose of Lasix and advised that he would need better treatment for his heart failure with reduced ejection fraction. He was actually scheduled to undergo a CardioMEMS in the hospital on this Tuesday. He was also in the process of being referred to [facility] for possible ablation in the near future. However, the patient now presents to the emergency room with above- mentioned symptoms. The patient is resting comfortably. I had a lengthy discussion with the patient and his at bedside. It appears that he was only on amiodarone for a short term (less than one year) and had partial left eye blindness. It is highly unlikely that the amiodarone was the cause of the symptoms. I therefore have recommended and discussed with the ER physician that the patient be started on IV amiodarone per protocol. If he becomes hypotensive, then would consider DC cardioversion to attain sinus rhythm. In the interim, the patient did not take his Eliquis this morning, he was advised to resume Eliquis right now. We will have the ICD interrogated at bedside as well. The patient does have noted troponin elevation but this is likely secondary to his arrhythmia. Of note, the patient did have a coronary angiogram performed in February of 2024 that did not reveal any obstructive disease. Allergies: Coded Allergies: amiodarone (Verified Allergy, Unknown, BLINDED PT, 12/02/24) Home Medications Home Medications Active Reported Atorvastatin Calcium 20 Mg Tablet 1 Tab PO DAILY Spironolactone 25 Mg Tablet 1 Tab PO DAILY Furosemide 20 Mg Tablet 1 Tab PO DAILY Entresto 24 mg-26 mg Tablet (Sacubitril/Valsartan) 24 Mg-26 Mg Tablet 1 Tab PO BID Flecainide Acetate 100 Mg Tablet 2 Tab PO AM 30 Days Lisinopril 20 Mg Tablet 1 Tab PO DAILY Aspir 81 (Aspirin) 81 Mg Tablet.dr 1 Tab PO DAILY 30 Days Metoprolol Succinate 25 Mg Tab.sr.24h 1 Tab PO BID Flecainide Acetate 100 Mg Tablet 1 Tab PO HS Eliquis (Apixaban) 5 Mg Tablet 1 Tab PO BID Past Medical History Medical History Comment 1. Cardiomyopathy (nonischemic)/HFrEF 2. Mild coronary artery disease per a coronary angiogram from February 2024 3. Atrial fibrillation/flutter 4. History of mitral valve replacement and Re-Do MVR in 03/2024 Past Surgical History Surgical History Comment 1. History of MVR 2. HIstory of BI-V ICD Placement Past Family History Family History Comment Noncontributory Past Social History Social History Comment The patient lives at home. 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 Denies any illicit drug use Physical Exam Last Vital Signs Recorded: Temperature: 98.2, Source: Oral, Heart Rate: 149, Respiratory Rate: 14, BP: 100/65, Pulse Oximetry: 98, Weight: 89.550 EENT: moist mucous membranes Respiratory: crackles Cardiovascular: tachycardia, systolic murmur Gastrointestinal: non-tender Rectal: deferred Neurologic: oriented x4 Review of Systems ROS ROS Comments: A full 12 point review of systems was performed and was negative unless otherwise mentioned in HPI Results Results/Orders Results/Orders A full 12 point review of systems was performed and was negative unless otherwise mentioned in the HPI Diagram Lab Result Diagram: 12/02/24 1055 12/02/24 1055 Lab Results Trop HS: 3511 Other Procedure Comments: Coronary Angio (03/05/24): LEFT MAIN CORONARY ARTERY: The left main was a large vessel trifurcating into left anterior descending, intermediate and circumflex coronary arteries. The distal left main appeared to be narrowed by about 40%. LEFT ANTERIOR DESCENDING CORONARY ARTERY: The LAD was a medium-sized vessel with a transapical distribution. There was a large diagonal branch taking its origin proximally. There were no obstructive lesions in the left anterior descending coronary artery, however, there was mild narrowing in the mid sectionestimated to be about 40%. INTERMEDIATE ARTERY: The intermediate was a [id number] vessel with no definite obstructive disease. The origin of the intermediate was somewhat obscured by the radio opacity of the mitral annulus enforcing ring. CIRCUMFLEX CORONARY ARTERY: The circumflex was a large mainstem vessel. There was a large first obtuse marginal branch. There were no other obtuse marginals,but there was a small posterior descending branch and a small posterior descending branch. There were no obvious obstructive lesions in the circumflex coronary artery. RIGHT CORONARY ARTERY: The right coronary appeared to be a nondominant vessel, although one of the acute marginals reach down to the inferoapical region of theleft ventricle. There were no obstructive lesions in the right coronary artery. Redo mitral valve replacement with a 31 mm epic porcine mitral valve prosthesis (04/20/24) Echo (?From Dr. Jenkins's Office): Severe CMP with EF < 30% [employer] Bi-V ICD (09/10/24) EKG (12/02/24): Wide Complex Tachycardia at 151 bpm (?A flutter vs fib) Assessment/Plan Additional Plan The patient is an 84-year-old male with a history of nonischemic cardiomyopathy, baseline LBBB, s/p Bi-V ICD placement in August 2024, history of mitral valve replacement along with redo replacement in March of 2024, atrial fibrillation/flutter, heart failure with reduced ejection fraction, and chronic anticoagulation who presents to the emergency room today due to noted elevated heart rates and a low blood pressure. 1. Wide Complex Tachycardia --appears to be consistent with underlying atrial fibrillation versus flutter --would recommend that the device/ICD be interrogated by the [employer] rep --start IV amiodarone per protocol; as mentioned above, I had a lengthy discussion with the patient and his in regards to his presumed allergy to amiodarone. The partial left eye blindness does not appear to be secondary to amiodarone. Therefore, we will go ahead and proceed with amiodarone per protocol --resume Eliquis 5 mg b.i.d. (the patient only missed this morning's dose and it will be given now, only 3 hours late) --if the patient does not respond to amiodarone or if the patient has hypotension, then would consider DC cardioversion. This was discussed with ER physician as well. --ensure electrolytes are within normal range with a potassium of greater than four and a magnesium of greater than two --recommend increasing dose of metoprolol. Would recommend he be on metoprolol succinate 50 mg b.i.d. --once heart rate improves, would recommend obtaining a echocardiogram to assess his ejection fraction and wall motion 2. Cardiomyopathy/HFrEF --continue Entresto --Increase metoprolol succinate to 50 mg b.i.d. --Cont Spirolactone --would also recommend the addition of an SGLT2 inhibitor --Would continue with diuresis as well --Strict I/Os. Daily weights. --patient was being worked up for possible CardioMEMS. We will see if that is possible during this admission. 3. History of mitral valve replacement 4. CAD: --Cont ASA 81 mg QHS --High dose statin (atrovastatin 80 mg QHS) --Beta-jenny to be given as above 5. Elevated Troponins --likely secondary to his underlying arrhythmia. --of note the patient did have a coronary angiogram prior to his mitral valve replacement in March of 2024. That angiogram did not reveal any obstructive/severe CAD. --thus, at this point would recommend discontinuing all further troponin levels as the patient will already be on anticoagulation with Eliquis and will be on other cardiac medications as mentioned above --Okay to use ASA 81 mg QHS 6. RUDY on CKD: --patient with noted creatinine of 1.57. Prior creatinine was 1.29. The patient was seen and evaluated in the emergency room. The patient had a noted significant arrhythmia and required critical care time of approximately 25 minutes. Discussion was held with the patient, his spouse, and with ER physician. All their questions were answered. Plan of care was also discussed. Would recommend that the patient be admitted to the hospitalist service and Cardiology will follow as a consult. Please feel free to call with any questions/concerns that you may have. LONG MARY MD December 02, 2024 12:01
[2024-12-02] MEDS: apixaban 5mg tablet PO SCH (12:04)
[2024-12-02] MEDS: amiodarone 150mg/dext, iso-os 100 ML IV ONE (12:42)
[2024-12-02] MEDS: amiodarone/D5 360MG/200ML BAG 200 ML IV SCH (13:08)
[2024-12-02] MEDS: PERFLUTREN PROTEIN-A MICROSPHR (Optison) 0.22 MG/ML 3ML VIAL IV ONE (13:45)
[2024-12-02] MEDS ORDERED: magnesium Cl slow-release 64mg tablet PO PRN (13:45)
[2024-12-02] MEDS ORDERED: magnesium hydroxide 30ml (MOM) UD suspension PO PRN (13:45)
[2024-12-02] MEDS ORDERED: potassium Cl 20 mEq SR tablet PO PRN ×2 (13:45)
[2024-12-02] MEDS ORDERED: potassium Cl 40MEQ/1/2NS 520ml 520 ML IV PRN (13:45)
[2024-12-02] MEDS ORDERED: morphine 2 MG/ML inj. syringe IV PRN ×2 (13:45)
[2024-12-02] MEDS ORDERED: mag hydrox/Alum hydrox/simeth 30ml oral suspension PO PRN (13:45)
[2024-12-02] MEDS ORDERED: magnesium sulf-water 2g/50mL 50 ML IV PRN (13:45)
[2024-12-02] MEDS ORDERED: magnesium sulf-water 4G/100mL 100 ML IV PRN (13:45)
[2024-12-02] MEDS ORDERED: acetaminophen 325mg tablet PO PRN (13:45)
[2024-12-02] MEDS ORDERED: ondansetron/PF 4mg/2ml inj IV PRN (13:45)
--- NOTE | 2024-12-02 14:49 | HISTORY AND PHYSICAL-Residence ---
History & Physical Providers to CC Resident Creating Document: CAMERON MORRISONCHARLIE ZELAYA CC: ROBIN MCCLAIN MD ~ History of Present Illness Primary Medical Doctor: Dr Gee Reason for Admit\Complaint: Palpitations History of Present Illness Patient is an 84-year-old male with history of atrial fibrillation, heart failure with reduced ejection fraction, mitral valve insufficiency and hyperlipidemia who came to the ED due to palpitations. Patient reports that today while mowing the lawn he presented with severe fatigue and shortness of breath along with lightheadedness. He checked his vitals are home and noticed to have a pulse of 141 and a systolic blood pressure of 75 reason why he decided to come to the ED. in ED, patient was initially started on Cardizem, but in view of hypotension this was discontinued. Dr. Brown evaluated the patient in ED and recommended starting amiodarone drip. Of note, patient has been taking flecainide for several years and was switched to amiodarone three days ago due to severely reduced EF, however, patient did not start the medication yet. Allergies: Coded Allergies: No Known Allergies (Unverified , 12/02/24) Home Medications Home Medications Active Reported Atorvastatin Calcium 20 Mg Tablet 1 Tab PO DAILY Spironolactone 25 Mg Tablet 1 Tab PO DAILY Furosemide 20 Mg Tablet 1 Tab PO DAILY Entresto 24 mg-26 mg Tablet (Sacubitril/Valsartan) 24 Mg-26 Mg Tablet 1 Tab PO BID Flecainide Acetate 100 Mg Tablet 2 Tab PO AM 30 Days Lisinopril 20 Mg Tablet 1 Tab PO DAILY Aspir 81 (Aspirin) 81 Mg Tablet.dr 1 Tab PO DAILY 30 Days Metoprolol Succinate 25 Mg Tab.sr.24h 1 Tab PO BID Flecainide Acetate 100 Mg Tablet 1 Tab PO HS Eliquis (Apixaban) 5 Mg Tablet 1 Tab PO BID Past Medical History Past Medical History Atrial fibrillation Heart failure with reduced ejection fraction Hyperlipidemia Mitral valve insufficiency s/p MV replacement Past Surgical History Surgical History Comment Mitral valve repair, 2010 Mitral valve replacement, 2023 ICD/pacemaker placement, 2024 Past Social History Smoking: Quit greater than 1 year (Quit over 40 years ago) Alcohol Use: None Drug Use: None Lives with: Spouse Lives In: Home 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) ROS ROS All systems were reviewed except for pertinent positives mentioned in HPI Constitutional: Reports: see HPI Eyes: Denies: no symptoms reported, see HPI, pain, discharge, blurred vision, double vision, itching, photophobia, redness, tearing, other ENT: Denies: no symptoms reported, see HPI, ear pain, ear bleeding, ear discharge, hearing loss, ear ringing, nose pain, nose bleeding, nose congestion, nose discharge, throat pain, throat swelling, voice change, mouth pain, mouth bleeding, mouth swelling, other Respiratory: Reports: see HPI Cardiovascular: Reports: see HPI Gastrointestinal: Denies: no symptoms reported, see HPI, abdomen distended, abdominal pain, nausea, vomiting, diarrhea, constipated, melena, hematemesis, hematochezia, rectal bleeding, rectal pain, dysphagia, poor appetite, poor fluid intake, other Genitourinary: Denies: no symptoms reported, see HPI, burning, discharge, dysuria, frequency, flank pain, hematuria, incontinence, pain, decreased urine output, urgency, other Male Genitalia: Denies: no symptoms reported, see HPI, penile discharge, penile sore, testicular pain, testicular swelling, other Neurological: Denies: no symptoms reported, see HPI, speech problem, headache, dizziness, fainting, tingling, left sided numbness, right sided numbness, left sided weakness, right sided weakness, problems walking, unable to move lower ext, unable to move upper ext, petit mal seizures, tonic-clonic seizures, cognitive dysfunction, other Musculoskeletal: Denies: no symptoms reported, see HPI, pain, swelling, back pain, gout, joint pain, joint swelling, muscle pain, muscle swelling, muscle stiffness, neck pain, other Integumentary: Reports: other (Lower extremity edema) Allergic/Immunologic: Denies: no symptoms reported, see HPI, hives, itching, frequent infections, difficulty healing, other Hematologic/Lymphatic: Denies: no symptoms reported, see HPI, anemia, blood clots, easy bleeding, easy bruising, swollen glands, other Endocrine: Denies: no symptoms reported, see HPI, excessive sweating, flushing, intolerance to cold, intolerance to heat, increased hunger, increased thrist, increased urine, unexplained weight gain, unexplained weight loss, other Psychiatric: Denies: no symptoms reported, see HPI, depression, anxiety, sleeplessness, hopeless, suicidal, hallucinations, other Exam Vitals: Vital Signs Date Time Temp Pulse Resp B/P (MAP) Pulse Ox O2 Delivery O2 Flow Rate FiO2 12/02/24 14:11 60 13 108/71 (83) 97 12/02/24 11:28 0 12/02/24 11:07 98.2 General: General: awake, alert oriented to place, time, and person HEENT: No pallor present, no icterus, moist mucous membranes Neck: No masses and tenderness Resp: Unlabored. Lungs clear to auscultation bilaterally. Chest: Midchest surgical scar. PM palpable in left hemithorax Heart: Regular Rate and rhythm, normal S1 and S2 without murmur, rub or gallop. No JVD Abdomen: Soft and non tender no organomegaly, no guarding and rigidity, bowel sounds present Neuro: No weakness in the upper and lower limb muscles, power of the muscles 5/5 bilateral upper and lower muscles, knee reflex present bilaterally. Cranial nerves intact Extremities: Trace LE edema. No cyanosis or clubbing Skin: Warm and Dry. No lesions Diagnostic Data Last Recorded Lab Results: 12/02/24 1055 12/02/24 1055 Diagnostic Data: Laboratory Tests Test 12/02/24 10:55 Prothrombin Time 11.7 SECONDS (9.0-12.0) INR International Normalized Ratio 1.2 INR Coagulation Comments Advance Care Planning Advanced Care plannin - 30 Minutes Additional Plan Patient is an 84-year-old male with history of atrial fibrillation, heart failure with reduced ejection fraction, mitral valve insufficiency and hyperlipidemia who came to the ED due to palpitations. Admitted for evaluation management of atrial fibrillation with RVR. Cardiology following Atrial fibrillation with RVR HFrEF, Class III, stage C s/p ICD Cardiogenic shock, resolved CAD/type 2 ND, likely 2/2 demand/supply ischemia History of MV insufficiency s/p MV replacement Hyperlipidemia Patient was initially hypotensive and tachycardic, now hemodynamically stable Currently heart rate is paced at 60 Initial PM interrogation showed episode of Afiv RVR below the rate of shock Troponin 3511. Pending proBNP Dr. Brown was consulted in ED. Recommended: - Amiodarone drip. Consider cardioversion if no response - No further troponins since patient is already on Eliquis - Increase metoprolol to 50 mg daily - Continue Entresto - Continue baby aspirin - Consider adding SGLT2 inhibitor - Atorvastatin 80 mg daily - Continue Eliquis 5 mg b.i.d. - Echocardiogram Will continue pot liner recommendations RUDY on CKD likely 2/2 vasomotor nephropathy Baseline creatinine 1.2 Current creatinine 1.57 Management as above Will continue monitoring BMP Code Status: Full code DVT prophylaxis: Eliquis Nutrition: Heart healthy diet PT: Ordered Prognosis: Guarded Disposition: Admit to PCU with tele monitoring. Continue medical management. Continue cardiology recommendations Charlie Morrison MD Internal Medicine Resident PGY-1 Date of Service: December 02, 2024 Billing Provider: ROBIN MCCLAIN MD, LEONARDO LUIS December 02, 2024 14:49
--- NOTE | 2024-12-02 16:37 | Physician Documentation ---
History of Present Illness ~ Chief Complaint: Palpitations Stated Complaint: SOB/HIGH BP Time Seen by MD: 10:52 Primary Medical Doctor: Dr Gee Mode of Arrival: POV HPI 84-year-old male who presents to the emergency department for irregular heart rate, patient has a history of AICD pacemaker placement in the past, he has noted for the past several days he has had increased heart rate associated with shortness of breath. Timing/Duration: days Activities at Onset: none Modifying Factors: Improves with: nothing Associated Signs and Symptoms: Denies: chest pain Medication Reconciliation Allergies: Coded Allergies: No Known Allergies (Unverified , 12/02/24) Scheduled Apixaban (Eliquis), 1 TAB PO BID, (Reported) Aspirin (Aspir 81), 1 TAB PO DAILY, (Reported) Atorvastatin Calcium (Atorvastatin Calcium), 1 TAB PO DAILY, (Reported) Furosemide (Furosemide), 1 TAB PO DAILY, (Reported) Lisinopril (Lisinopril), 1 TAB PO DAILY, (Reported) Sacubitril/Valsartan (Entresto 24 mg-26 mg Tablet), 1 TAB PO BID, (Reported) Spironolactone (Spironolactone), 1 TAB PO DAILY, (Reported) Discontinued Medications Flecainide Acetate (Flecainide Acetate), 1 TAB PO HS, (Reported) Flecainide Acetate (Flecainide Acetate), 2 TAB PO AM, (Reported) Metoprolol Succinate (Metoprolol Succinate), 1 TAB PO BID, (Reported) Past Medical History Smoking Status: Never smoker Alcohol Use: None Drug Use: none Lives with: Spouse Lives In: Home 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) Review of Systems All Other Systems at this time: Reviewed and Negative Constitutional: Reports: see HPI Respiratory: Reports: shortness of breath, SOB at rest Physical Exam Vital Signs: RN Vital Signs have been reviewed: Yes, Temperature: 98.2, Source: Oral, Heart Rate: 60, Respiratory Rate: 19, BP: 105/72, Pulse Oximetry: 96, Weight: 89.550 Oxygen Flow Rate: 0 General Appearance: alert, mild distress EENT: normal ENT inspection, moist mucous membranes Neck: normal inspection, full range of motion, supple Respiratory: lungs clear, normal breath sounds, no respiratory distress Cardiovascular: tachycardia Gastrointestinal: normal palpation Back: normal inspection, no CVA tenderness Extremities: normal inspection, no calf tenderness Neurologic: oriented x4, 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 nml as tested Progress Results/Orders Results/Orders Orders - MACARIO SAAB DO Chest,Single View (12/02/24 11:08) Amiodarone/D5 360mg/200ml Bag (Nexterone (12/02/24 12:25) Page Hospitalist (12/02/24 13:27) Fill Out Med Reconciliation (12/02/24 13:27) Page Hospitalist (12/02/24 13:43) Fill Out Med Reconciliation (12/02/24 13:43) Completed Orders - MACARIO SAAB DO Diltiazem Iv (Cardizem Iv 5mg/Ml Inj.) (12/02/24 10:55) Pt Inr (12/02/24 10:56) Cbc/Diff (12/02/24 10:56) CMP (12/02/24 10:56) Hs Troponin I W Calculations (12/02/24 10:56) MG (12/02/24 10:57) Diltiazem Iv (Cardizem Iv 5mg/Ml Inj.) (12/02/24 10:59) Chest,Single View (12/02/24 11:08) Electrocardiogram (12/02/24 11:09) Amiodarone 150mg/Dext, Iso-Os (Nexterone (12/02/24 12:25) Medications Received in ER Medications (Trade) Dose Ordered Sig/Jose Route PRN Reason Start Time Stop Time Status Last Admin Dose Admin (Cardizem IV 5mg/ ml inj.) 20 mg ONCE ONCE IV 12/02/24 10:55 12/02/24 11:05 DC 12/02/24 11:03 20 MG (Eliquis tablet) 5 mg BID PO 12/02/24 11:56 12/02/24 12:08 DC 12/02/24 12:04 5 MG Amiodarone HCL/ Dextrose 100 ml @ 600 mls/hr ONCE ONCE IV 12/02/24 12:25 12/02/24 12:36 DC 12/02/24 12:42 600 MLS/HR Amiodarone HCL/ Dextrose 200 ml @ 33.333 mls/ hr Q6H IV 12/02/24 12:25 12/02/24 13:08 33.333 MLS/HR Vital Signs 12/02/24 12/02/24 12/02/24 12/02/24 10:57 10:58 11:03 11:03 Temp 97.9 Pulse 140 170 126 140 Resp 12 18 15 B/P (MAP) 107/86 120/93 (102) 107/86 Pulse Ox 98 99 98 O2 Flow Rate 0 0 0 12/02/24 12/02/24 12/02/24 12/02/24 11:07 11:08 11:08 11:13 Temp 98.2 Pulse 127 125 152 Resp 20 22 20 18 B/P (MAP) 107/86 (93) 86/62 (70) Pulse Ox 96 95 97 O2 Flow Rate 0 0 0 12/02/24 12/02/24 12/02/24 12/02/24 11:17 11:18 11:23 11:28 Pulse 150 151 150 150 Resp 11 15 18 17 B/P (MAP) 84/61 (69) 94/55 (68) Pulse Ox 98 98 98 98 O2 Flow Rate 0 0 0 12/02/24 12/02/24 12/02/24 12/02/24 11:47 12:08 12:46 13:08 Pulse 149 148 149 119 Resp 14 19 21 15 B/P (MAP) 100/65 (77) 92/69 (77) 88/61 (70) 109/79 (89) Pulse Ox 98 96 98 97 Laboratory Tests Test 12/02/24 10:55 White Blood Count 6.9 Red Blood Count 4.75 Hemoglobin 14.7 Hematocrit 43.5 Mean Corpuscular Volume 91.6 Mean Corpuscular Hemoglobin 30.9 Mean Corpuscular Hemoglobin Concent 33.8 Red Cell Distribution Width 15.7 H Platelet Count 170 Mean Platelet Volume 7.2 L Neutrophils (%) (Auto) 65.4 Lymphocytes (%) (Auto) 21.6 Monocytes (%) (Auto) 10.6 Eosinophils (%) (Auto) 1.6 Basophils (%) (Auto) 0.8 Neutrophils # (Auto) 4.5 Lymphocytes # (Auto) 1.5 Monocytes # (Auto) 0.7 Eosinophils # (Auto) 0.1 Basophils # (Auto) 0.1 CBC Comment Prothrombin Time 11.7 INR International Normalized Ratio 1.2 Coagulation Comments Sodium Level 143 Potassium Level 4.2 Chloride Level 109 H Carbon Dioxide Level 26.8 Anion Gap 7 L Blood Urea Nitrogen 24 H Creatinine 1.57 H Estimated GFR/1.73 m2 43 BUN/Creatinine Ratio 15.3 Glucose Level 127 H Calcium Level 8.7 Magnesium Level 2.2 Total Bilirubin 0.6 Aspartate Amino Transf (AST/SGOT) 45 H Alanine Aminotransferase (ALT/SGPT) 67 Alkaline Phosphatase 94 Troponin I High Sensitivity 3511 *H Total Protein 6.4 Albumin 3.5 Globulin 2.9 Albumin/Globulin Ratio 1.2 Chemistry Comments EKG/XRAY/CT/US/VASC/MRI EKG : Additional Comment Ventricular paced complex rate of 180 wide complex concerning for possible ventricular tachycardia abnormal EKG Chest X-Ray : Additional Comments [place] [id number] DIAGNOSTIC RADIOLOGY Patient: LAKISHA MARTIN Medical Record: [id number] [facility] 1940, Age: 84 Sex: Male Location: ER Patient Status: REG ER Service Date/Time: 12/02/241107 Ordering Physician: MACARIO SAAB DO Exam: CHEST,SINGLE VIEW DI CHEST,SINGLE VIEW, HISTORY: SOB COMPARISON: DI CHEST,SINGLE VIEW on DOS: 09/10/24, DI CHEST,SINGLE VIEW on DOS: 04/23/24, DI CHEST,SINGLE VIEW on DOS: 04/22/24 DI CHEST,SINGLE VIEW on DOS: 09/10/24, DI CHEST,SINGLE VIEW on DOS: 04/23/24, DI CHEST,SINGLE VIEW on DOS: 04/22/24 TECHNICAL DATA: 1 view of the chest was obtained. FINDINGS: Lines and tubes: There is a cardiac pacer. Cardiomediastinal silhouette: Enlarged Pulmonary vasculature: normal Lung expansion: normal Lung airspace: normal Lung interstitium: normal Pleura: normal Pneumothorax: no Bones: Unremarkable Other: no IMPRESSION: Cardiomegaly with pulmonary vascular congestion / interstitial pulmonary edema. Electronically Signed by:MARS HANDY MD Date & Time: 12/02/241135 Dictated by: MARS HANDY MD Dictation date and time: 12/02/241135 Primary Care Provider: NO PRIMARY CARE PROVIDER cc: MACARIO SAAB DO ~ Heart Score: Heart Score Response (Comments) Value History Moderate Suspicious 1 EKG Repolarization Disturb 1 Age >65 2 Risk Factors 1 or 2 risk factors 1 Troponin Normal limit 0 Total 5 Medical Decision Making Differential Dx:Considerations: Include: angina / IN, atrial dysrhythmia, atrial fibrillation, atrial flutter, sinus tachycardia, ventricular fibrillation, ventricular tachycardia Departure Disposition: ADMITTED INPATIENT Impression: Primary Impression: Ventricular tachycardia Additional Impression: Atrial flutter with rapid ventricular response Discharge Instructions: Atrial Fibrillation, [id number] Referrals: NO PRIMARY CARE PROVIDER (PCP) Critical Care Note Total Time (mins): 45 Critical Care Note Critical care time spent managing impending cardiac collapse in the setting of ventricular tachycardia, critical care interventions include IV amiodarone and diltiazem in addition to reviewing applicable imaging in laboratory, critical care time is exclusive of all other billable procedures ACF Form Admit Criteria Met or Not Met: YES Signature Scribe Signature: None Attestation: Dictated by myself MACARIO SAAB DO December 02, 2024 16:37
--- NOTE | 2024-12-02 17:45 | ELECTROCARDIOGRAPH REPORT ---
[facility] Test Date: 2024-12-02 Test Time: 17:41:26 Pat Name: LAKISHA MARTIN Department: [facility] 3S Room: [place] [address] A Gender: M Crane Man: : 1940 Requested By: ROBIN MCCLAIN Order Number: [id number] Reading MD: Dr. Jose C Klein Measurements Intervals [place] Rate: 122 P: 0 WA: 76 QRS: 247 QRSD: 177 T: 73 QT: 409 QTc: 583 Interpretive Statements Ventricular-paced complexes No further analysis attempted due to paced rhythm Electronically Signed On 12-03-2024 18:45:[address] Jose C Klein Please click the below link to view image of tracing.
[2024-12-02] MEDS: metoprolol tartrate 1mg/ml inj IV ONE (17:51)
[2024-12-02] MEDS ORDERED: metoprolol succinate 25mg (24-HOUR) SR. Tablet PO SCH (18:30)
[2024-12-02] MEDS: metoprolol succinate 25mg (24-HOUR) SR. Tablet PO SCH (18:41)
[2024-12-02] MEDS: sacubitril/valsartan 24mg-26mg tablet PO SCH (20:00)
[2024-12-02] MEDS: K and/or MAG REPLACEMENT MC SCH (20:00)
[2024-12-02] MEDS ORDERED: apixaban 5mg tablet PO SCH (20:00)
[2024-12-02] MEDS: apixaban 2.5mg tablet PO SCH (21:03)
[2024-12-02] MEDS: docusate sod 100mg capsule PO SCH (21:03)
[2024-12-03] VITALS (16 sets, daily range): BP systolic 92–112; BP diastolic 71–89; PULSE 61–121; RESP 13–23; TEMP 96.9–98.6; O2SAT 93–100
[2024-12-03 06:32] LABS: BASOPHILS % (AUTO) 0.7 % (0-1); EOSINOPHILS # (AUTO) 0.1 X10'3 (0-0.9); EOSINOPHILS % (AUTO) 2.3 % (0-6); HEMATOCRIT 43.3 % (42.0-52.0); HEMOGLOBIN 14.5 g/dl (14.0-17.9); LYMPHOCYTES # (AUTO) 1.3 X10'3 (1.1-4.8); LYMPHOCYTES % (AUTO) 20.3 % (21-51); MEAN CORPUSCULAR HEMOGLOBIN 30.1 PG (27.0-31.0); MEAN CORPUSCULAR HGB CONC 33.6 g/dL (33.0-36.5); MEAN CORPUSCULAR VOLUME 89.8 FL (78-98); MEAN PLATELET VOLUME 7.5 FL (7.4-10.4); MONOCYTES # (AUTO) 0.6 X10'3 (0-0.9); MONOCYTES % (AUTO) 8.9 % (2-12); NEUTROPHILS # (AUTO) 4.3 X10'3 (1.8-7.7); NEUTROPHILS % (AUTO) 67.8 % (42-75); PLATELET COUNT 139 X10'3 (140-440); RED BLOOD COUNT 4.82 X10'6 (4.70-6.10); RED CELL DISTRIBUTION WIDTH 15.5 % (11.5-14.5); WHITE BLOOD COUNT 6.3 X10'3 (4.5-11.0)
[2024-12-03 06:59] LABS: ALANINE AMINOTRANSFERASE 58 U/L (12-78); ALBUMIN 3.1 G/DL (3.4-5.0); ALBUMIN/GLOBULIN RATIO 1.1 (1.1-1.5); ALKALINE PHOSPHATASE 78 IU/L (46-116); ANION GAP 10 (8-16); ASPARTATE AMINO TRANSFERASE 45 U/L (10-37); BILIRUBIN,TOTAL 0.4 MG/DL (0.1-1.0); BLOOD UREA NITROGEN 20 MG/DL (7-18); BUN/CREATININE RATIO 14.2 (10.0-20.0); CALCIUM 8.2 MG/DL (8.5-10.1); CHLORIDE 110 MMOL/L (99-107); CREATININE 1.41 MG/DL (0.60-1.10); GLUCOSE 120 MG/DL (70-104); MAGNESIUM 2.1 MG/DL (1.5-2.4); POTASSIUM 4.3 MMOL/L (3.5-5.1); SODIUM 143 MMOL/L (135-145); TOTAL CARBON DIOXIDE 23.4 MMOL/L (24-32); TOTAL PROTEIN 5.8 G/DL (6.4-8.2); eCRCL 43 ML/MIN; eGFR 48 ML/MIN
[2024-12-03 08:34] LABS: CHOL/HDL RATIO 2.8 (0.00-4.99); CHOLESTEROL 127 MG/DL (0-200); FREE T4 (FREE THYROXINE) 1.03 NG/DL (0.73-1.40); HDL CHOLESTEROL 45 MG/DL (35-60); LDL CHOLESTEROL 69 MG/DL (50-100); TRIGLYCERIDES 61 MG/DL (20-135)
[2024-12-03] MEDS: furosemide 20MG tablet PO SCH (08:58)
[2024-12-03] MEDS: spironolactone 25 MG tablet PO SCH (08:59)
[2024-12-03] MEDS: aspirin 81mg, enteric-coated 1 TAB TABLET.DR PO SCH (09:00)
[2024-12-03] MEDS: atorvastatin 20mg tablet PO SCH (09:02)
--- NOTE | 2024-12-03 11:05 | PROGRESS NOTE- Residence ---
Progress Note - Resident Providers to CC Resident Creating Document: CHARLIE LAWSON CC: ROBIN MCCLAIN MD ~ Antibiotic Timeout Antibiotic Ordered?: No Subjective Patient was examined at bedside today. He reports feeling well, denies lightheadedness, chest pain, shortness of breaths or any other subjective symptoms. Objective Vital Signs Date Time Temp Pulse Resp B/P (MAP) Pulse Ox O2 Delivery O2 Flow Rate FiO2 12/03/24 08:59 120 12/03/24 05:00 21 101/76 (84) 12/03/24 02:00 97.7 97 Room Air 12/02/24 11:28 0 Result Diagram: 12/03/2455412/03/24554 General: awake, alert oriented to place, time, and person HEENT: No pallor present, no icterus, moist mucous membranes Neck: No masses and tenderness Resp: Unlabored. Lungs clear to auscultation bilaterally. Chest: Midchest surgical scar. PM palpable in left hemithorax Heart: Regular Rate and rhythm, normal S1 and S2 without murmur, rub or gallop. No JVD Abdomen: Soft and non tender no organomegaly, no guarding and rigidity, bowel sounds present Neuro: No weakness in the upper and lower limb muscles, power of the muscles 5/5 bilateral upper and lower muscles, knee reflex present bilaterally. Cranial nerves intact Extremities: Trace LE edema. No cyanosis or clubbing Skin: Warm and Dry. No lesions Coagulation Studies Laboratory Tests Test 12/02/24 10:55 Prothrombin Time 11.7 SECONDS (9.0-12.0) INR International Normalized Ratio 1.2 INR Coagulation Comments Assessment Assessment Patient is an 84-year-old male with history of atrial fibrillation, heart failure with reduced ejection fraction, mitral valve insufficiency and hyperlipidemia who came to the ED due to palpitations. Admitted for evaluation management of atrial fibrillation with RVR. Cardiology following Plan Plan Atrial fibrillation with RVR, likely aberrant conduction Acute on chronic HFrEF, Class III, stage C s/p ICD Cardiogenic shock, resolved CAD/type 2 OK, likely 2/2 demand/supply ischemia History of MV insufficiency s/p MV replacement Hyperlipidemia Patient was initially hypotensive and tachycardic, now hemodynamically stable Earlier this morning patient's heart rate was ventricular paced at 120bpm, then converted to paced at 60 Initial PM interrogation showed episode of paroxysmal VT below the rate of shock. PM setting was changed to shock at 180bpm Troponin 3511. ProBNP 8507 Dr. Brown was consulted in ED. Recommended: - Amiodarone drip. Consider cardioversion if no response - No further troponins since patient is already on Eliquis - Initially recommended to increase metoprolol to 50 mg daily. Then recommended 100mg BID - Continue Entresto - Continue baby aspirin - Consider adding SGLT2 inhibitor - Atorvastatin 80 mg daily - Continue Eliquis 5 mg b.i.d. - Echocardiogram (pending) - Discussed with Rosalina Vallecillo today. Attempted to stop amio drip, but patient back in RVR. Will continue. Possibly will start lido. - Patient may need transfer for VT ablation Will continue cardiology recommendations RUDY on CKD likely 2/2 vasomotor nephropathy, improving Baseline creatinine 1.2 Current creatinine 1.4 Pending urine lytes Management as above Will continue monitoring BMP Code Status: Full code DVT prophylaxis: Eliquis Nutrition: Heart healthy diet PT: Ordered Prognosis: Guarded Disposition: Continue care in PCU with tele monitoring. Continue medical management. Continue cardiology recommendations Charlie Mohamud MD Internal Medicine Resident PGY-1 Date of Service: December 03, 2024 Billing Provider: ROBIN MCCLAIN MD, LEONARDO LUIS December 03, 2024 11:05
[2024-12-03 11:26] LABS: PRO BRAIN NATRIURETIC PEPTIDE 8507 PG/ML (0-450)
[2024-12-03] MEDS: amiodarone/D5 360MG/200ML BAG 200 ML IV SCH (15:58)
--- NOTE | 2024-12-03 16:19 | PROGRESS NOTE ---
Progress Note Cardiology Providers to CC ~ Subjective Subjective Patient briefly went into sinus rhythm this morning. Back into what appears to be a ventricular paced rhythm at 120 beats per minute on telemetry. Shortness for breath improved. Objective Result Diagram: 12/03/2455412/03/24554 Objective General: Awake, alert, oriented. No apparent distress Neck: Supple. Normal range of motion. No JVD Respiratory: Lungs are clear to auscultation bilaterally. No respiratory distress. Chest: Normal shape and size. No accessory muscle use. Cardiovascular: Regular rate and rhythm. S1-S2. No murmur, gallop, rub. Extremities: No lower extremity edema, cyanosis or clubbing. Neurologic: Alert and oriented x4. Nonfocal Psychiatric: Normal mood and affect. Skin: Normal color. Warm and dry. Coagulation Studies Laboratory Tests Test 12/02/24 10:55 Prothrombin Time 11.7 SECONDS (9.0-12.0) INR International Normalized Ratio 1.2 INR Coagulation Comments Problem\Assessment\Plan Additional Plan The patient is an 84-year-old male with a history of nonischemic cardiomyopathy, baseline LBBB, s/p Bi-V ICD placement in August 2024, history of mitral valve replacement along with redo replacement in March of 2024, atrial fibrillation/flutter, heart failure with reduced ejection fraction, and chronic anticoagulation who presents to the emergency room today due to noted elevated heart rates and a low blood pressure. Wide Complex Tachycardia suspect parox a-fib/flutter with underlying LBBB. --ICD interrogation shows paroxysmal ventricular tachycardia --Cont IV amio. --resume Eliquis 5 mg b.i.d. --Increase Metop XL 200 mg bid If continued non-sustained vt will consider lido. 2. Cardiomyopathy/HFrEF --continue Entresto --Increase metoprolol succinate to 200 mg b.i.d. --Cont Spirolactone --would also recommend the addition of an SGLT2 inhibitor --Would continue with diuresis as well --Strict I/Os. Daily weights. --patient was being worked up for possible CardioMEMS. F/up outpatient for this. 3. History of mitral valve replacement --TTE pending. 4. CAD: --Cont ASA 81 mg QHS --High dose statin (atrovastatin 80 mg QHS) --Beta-jenny to be given as above 5. Elevated Troponins --likely secondary to his underlying arrhythmia. --of note the patient did have a coronary angiogram prior to his mitral valve replacement in March of 2024. That angiogram did not reveal any obstructive/severe CAD. --Cont med mgt as above. 6. RUDY on CKD: --patient with noted creatinine of 1.57. Prior creatinine was 1.29. --improving. Supervising Physician: TYLER Macdonald NP December 03, 2024 16:19
--- NOTE | 2024-12-03 17:06 | CARDIOLOGY REPORT ---
APPROVED REPORT EXAM: Comprehensive 2D, Doppler, and color-flow Echocardiogram. 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 Ernie MD / MD Megan / Rubina DAVENPORT, DO / [facility] / NONE Previous echo: 04/20/2024 [facility] EF: 50-55% 2D Dimensions RVDd 4.0 cm LA Diam5.2 cm IVSd 1.3 (0.7-1.1cm) LVDd 6.7 cm PWd 1.1 (0.7-1.1cm) IVSs 1.6 (0.8-1.2cm) LVDs 5.9 (2.5-4.0cm) PWs 1.1 (0.8-1.2cm) LVOT Diameter 2.08 (1.8-2.4cm) LVEF(%) 24.5 (>50%) FS (%) 11.6 % SV 55.8 ml CO 6.5 L/min M-Mode Dimensions IVSd 1.28 (0.7-1.1cm) LVDd 6.57 (4.0-5.6cm) PWd 1.24 (0.7-1.1cm) IVSs 1.48 cm LVDs 5.95 (2.0-3.8cm) FS (%) 13 % PWs 1.32 cm ESV(Teich) 142.1 ml LVEF(%) 15 (>50%) Aortic Valve AoV Peak Lenard. 102.5 cm/s AoV VTI 14.3 cm AO Peak GR. 4.2 mmHg AO Mean GR. 2 mmHg LVOT VTI 11.95 cm LVOT Peak Lenard. 77.8 cm/s BETTE(VTI)/BSA 2.84 cm2/m2 BETTE (VTI) 2.84 cm2 Mitral Valve MV Peak Gr. 12 mmHg MV Mean Gr. 3 mmHg MV XIxo110.0 cm/sMV VMean78.6 cm/s MVA VTI1.31 cm2MV VTI31.1 cm Tricuspid Valve TR P. Velocity 240 cm/s RAP ESTIMATE 10 mmHg TR Peak Gr. 23 mmHg RVSP 33 mmHg LEFT VENTRICLE The LV is dilated in size with severely reduced function. Severe global hypo- to akinetic segmental a bnormalities. Mild concentric hypertrophy. Overall LVEF appears to be around 10-15%. RIGHT VENTRICLE Right ventricle is severely dilated with reduced function. Estimated PA systolic pressure is 33 mmHg. ATRIA Severe Biatrial enlargement. AORTIC VALVE Trileaflet AV appears sclerotic without stenosis. Trace to mild insufficiency. MITRAL VALVE 31 mm Abbot Epic Plus MVR appears to be well seated and functioning normally. Trace regurgitation. Pe ak/Mean gradients of 12/3 mmHg and a peak velocity of 174.0 cm/s. TRICUSPID VALVE TV appears structurally normal with mild regurgitation. PULMONIC VALVE Grossly normal PV without stenosis, physiologic insufficiency. GREAT VESSELS The aortic root is normal in size. IVC is not well visualized. PERICARDIUM Normal pericardium. No pericardial effusion seen. Other Information Study Quality: Fair Conclusion The LV is dilated in size with severely reduced function. Severe global hypo- to akinetic segmental a bnormalities. Mild concentric hypertrophy. Overall LVEF appears to be around 10-15%. Right ventricle is severely dilated with reduced function. Estimated PA systolic pressure is 33 mmHg. Severe Biatrial enlargement. Trileaflet AV appears sclerotic without stenosis. Trace to mild insufficiency. 31 mm Abbot Epic Plus MVR appears to be well seated and functioning normally. Trace regurgitation. Pe ak/Mean gradients of 12/3 mmHg and a peak velocity of 174.0 cm/s. TV appears structurally normal with mild regurgitation. Normal pericardium. No pericardial effusion seen.
[2024-12-03] MEDS: metoprolol succinate 25mg (24-HOUR) SR. Tablet PO SCH (19:41)
[2024-12-03] MEDS ORDERED: amiodarone 200mg tablet PO SCH (20:00)
[2024-12-04] VITALS (16 sets, daily range): BP systolic 102–131; BP diastolic 63–100; PULSE 60–118; RESP 12–23; TEMP 97–98.6; O2SAT 96–98
[2024-12-04 06:30] LABS: BASOPHILS # (AUTO) 0.1 X10'3 (0-0.2); BASOPHILS % (AUTO) 0.8 % (0-1); EOSINOPHILS # (AUTO) 0.2 X10'3 (0-0.9); HEMATOCRIT 45.1 % (42.0-52.0); HEMOGLOBIN 15.2 g/dl (14.0-17.9); LYMPHOCYTES # (AUTO) 1.1 X10'3 (1.1-4.8); LYMPHOCYTES % (AUTO) 14.9 % (21-51); MEAN CORPUSCULAR HEMOGLOBIN 30.6 PG (27.0-31.0); MEAN CORPUSCULAR HGB CONC 33.7 g/dL (33.0-36.5); MEAN CORPUSCULAR VOLUME 90.8 FL (78-98); MEAN PLATELET VOLUME 7.7 FL (7.4-10.4); MONOCYTES # (AUTO) 0.5 X10'3 (0-0.9); MONOCYTES % (AUTO) 6.8 % (2-12); NEUTROPHILS # (AUTO) 5.7 X10'3 (1.8-7.7); NEUTROPHILS % (AUTO) 75.5 % (42-75); PLATELET COUNT 139 X10'3 (140-440); RED BLOOD COUNT 4.97 X10'6 (4.70-6.10); WHITE BLOOD COUNT 7.6 X10'3 (4.5-11.0)
[2024-12-04 06:56] LABS: ALANINE AMINOTRANSFERASE 52 U/L (12-78); ALBUMIN 3.1 G/DL (3.4-5.0); ALBUMIN/GLOBULIN RATIO 1.1 (1.1-1.5); ALKALINE PHOSPHATASE 82 IU/L (46-116); ANION GAP 9 (8-16); ASPARTATE AMINO TRANSFERASE 36 U/L (10-37); BILIRUBIN,TOTAL 0.4 MG/DL (0.1-1.0); BLOOD UREA NITROGEN 22 MG/DL (7-18); BUN/CREATININE RATIO 17.3 (10.0-20.0); CALCIUM 8.6 MG/DL (8.5-10.1); CHLORIDE 110 MMOL/L (99-107); CREATININE 1.27 MG/DL (0.60-1.10); GLUCOSE 125 MG/DL (70-104); MAGNESIUM 2.2 MG/DL (1.5-2.4); SODIUM 141 MMOL/L (135-145); TOTAL CARBON DIOXIDE 22.2 MMOL/L (24-32); TOTAL PROTEIN 5.9 G/DL (6.4-8.2); eCRCL 48 ML/MIN; eGFR 54 ML/MIN
[2024-12-04 07:00] LABS: POTASSIUM 4.7 MMOL/L (3.5-5.1)
[2024-12-04] MEDS: EMPAGLIFLOZIN 10 MG TABLET PO SCH (09:50)
--- NOTE | 2024-12-04 11:34 | PROGRESS NOTE ---
Progress Note Cardiology Providers to CC ~ Subjective Subjective Patient remains tachycardic this morning despite 200 mg of metoprolol succinate b.i.d.. Therefore, his pacemaker was reinterrogate it to evaluate for underlying rhythm. Underlying rhythm is atrial tachycardia. His upper tracking rate was set at 1:30 a.m.. Turned down to 100 and heart rate down into the 70s. Objective Result Diagram: 12/04/24 0553 12/04/24 0553 Objective General: Awake, alert, oriented. No apparent distress Neck: Supple. Normal range of motion. No JVD Respiratory: Lungs are clear to auscultation bilaterally. No respiratory distress. Chest: Normal shape and size. No accessory muscle use. Cardiovascular: Regular rate and rhythm. S1-S2. No murmur, gallop, rub. Extremities: No lower extremity edema, cyanosis or clubbing. Neurologic: Alert and oriented x4. Nonfocal Psychiatric: Normal mood and affect. Skin: Normal color. Warm and dry. Coagulation Studies Laboratory Tests Test 12/02/24 10:55 Prothrombin Time 11.7 SECONDS (9.0-12.0) INR International Normalized Ratio 1.2 INR Coagulation Comments Problem\Assessment\Plan Additional Plan The patient is an 84-year-old male with a history of nonischemic cardiomyopathy, baseline LBBB, s/p Bi-V ICD placement in August 2024, history of mitral valve replacement along with redo replacement in March of 2024, atrial fibrillation/flutter, heart failure with reduced ejection fraction, and chronic anticoagulation who presents to the emergency room today due to noted elevated heart rates and a low blood pressure. Wide Complex Tachycardia PAF suspect parox a-fib/flutter with underlying LBBB. --ICD interrogation shows paroxysmal ventricular tachycardia --resume Eliquis 5 mg b.i.d. --cont Metop XL 200 mg bid 12/04/24: No episodes of ventricular tachycardia since December 02, 2024. We will stop amiodarone drip and start amiodarone 400 mg b.i.d. for two weeks then 400 mg daily. Plan to monitor. If stable will discharge home either this afternoon, but more likely tomorrow morning. 2. Cardiomyopathy/HFrEF TTE with LVEF 10-15%. --continue Entresto --Increase metoprolol succinate to 200 mg b.i.d. --Cont Spirolactone --Cont entresto 24-26 mg BiD --cont jardiance 10 mg daily --Strict I/Os. Daily weights. --patient was being worked up for possible CardioMEMS. F/up outpatient for this. 12/04/24: Shortness for breath improved. Patient ambulated independently. Some shortness for breath at the end of his lap. The overall, feels well. 3. History of mitral valve replacement --MVR well seated. functioing normally. 4. CAD: --Cont ASA 81 mg QHS --High dose statin (atrovastatin 80 mg QHS) --Beta-jenny to be given as above 5. Elevated Troponins --likely secondary to his underlying arrhythmia. --of note the patient did have a coronary angiogram prior to his mitral valve replacement in March of 2024. That angiogram did not reveal any obstructive/severe CAD. --Cont med mgt as above. 6. RUDY on CKD: --improved. Supervising Physician: TYLER Macdonald NP December 04, 2024 11:34
[2024-12-04] MEDS: amiodarone 200mg tablet PO SCH (12:46)
--- NOTE | 2024-12-04 17:45 | PROGRESS NOTE- Residence ---
Progress Note - Resident Providers to CC Resident Creating Document: CHARLIE LAWSON CC: ROBIN MCCLAIN MD ~ Antibiotic Timeout Antibiotic Ordered?: No Subjective Patient was examined at bedside today. He reports he is feeling well, but he is frustrated and feels like he wants to go home tonight. He also states that he has not been able to get up and walk much because of his heart rate which he has not used to. Otherwise he denies chest pain, lightheadedness, dizziness or any other particular symptoms. Objective Vital Signs Date Time Temp Pulse Resp B/P (MAP) Pulse Ox O2 Delivery O2 Flow Rate FiO2 12/04/24 16:00 61 16 114/83 (93) 12/04/24 15:00 97.6 97 12/04/24 13:31 Room Air 12/04/24 08:00 0.0 Result Diagram: 12/04/24 0553 12/04/24 0553 General: awake, alert oriented to place, time, and person HEENT: No pallor present, no icterus, moist mucous membranes Neck: No masses and tenderness Resp: Unlabored. Lungs clear to auscultation bilaterally. Chest: Midchest surgical scar. PM palpable in left hemithorax Heart: Tachycardic, regular rhythm, normal S1 and S2 without murmur, rub or gallop. No JVD Abdomen: Soft and non tender no organomegaly, no guarding and rigidity, bowel sounds present Neuro: No weakness in the upper and lower limb muscles, power of the muscles 5/5 bilateral upper and lower muscles, knee reflex present bilaterally. Cranial nerves intact Extremities: Trace LE edema. No cyanosis or clubbing Skin: Warm and Dry. No lesions Coagulation Studies Laboratory Tests Test 12/02/24 10:55 Prothrombin Time 11.7 SECONDS (9.0-12.0) INR International Normalized Ratio 1.2 INR Coagulation Comments Assessment Assessment Patient is an 84-year-old male with history of atrial fibrillation, heart failure with reduced ejection fraction, mitral valve insufficiency and hyperlipidemia who came to the ED due to palpitations. Admitted for evaluation management of atrial fibrillation with RVR. 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 31 mm Abbot Epic Plus MVR appears to be well seated and functioning normally Initial PM interrogation on admission showed episode of paroxysmal VT below the rate of shock. PM setting was changed to shock at 180bpm Rhythm today was still ventricular paced at 120bpm. Pacemaker was re- interrogated which showed underlying atrial tachycardia with no further episodes of VT since 12/02/2024. Ventricular tracking rate was decreased from 130 to 100. Currently patient is pacing at 60bpm Cardiology following. Recommended: - DC amiodarone drip. Start po amiodarone 400mg BID for one week, then 400 mg daily - Continue Metoprolol succinate 200mb BID - Continue Entresto - Continue baby aspirin - Continue Jardiance - Continue Atorvastatin 80 mg daily - Continue Eliquis 2.5 mg b.i.d. Will continue cardiology recommendations RUDY on CKD likely 2/2 vasomotor nephropathy, resolved Creatinine back to baseline Pending urine lytes Management as above Will continue monitoring BMP Code Status: Full code DVT prophylaxis: Eliquis Nutrition: Heart healthy diet PT: Ordered Prognosis: Guarded Disposition: Continue care in PCU with tele monitoring. Continue medical management. Continue cardiology recommendations. Anticipated discharge tomorrow Charlie Mohamud MD Internal Medicine Resident PGY-1 Date of Service: December 04, 2024 Billing Provider: ROBIN MCCLAIN MD, LEONARDO LUIS December 04, 2024 17:45
[2024-12-05 00:15] LABS: BILIRUBIN,URINE NEGATIVE (Neg); CLARITY,URINE CLEAR (Clear); COLOR,URINE YELLOW (Yellow); GLUCOSE, URINE >=1000 mg/dl (Neg); KETONES,URINE NEGATIVE (Neg); LEUKOCYTE ESTERASE ,URINE NEGATIVE (Neg); NITRITES, URINE NEGATIVE (Neg); OCCULT BLOOD,URINE NEGATIVE (Neg); PROTEIN,URINE NEGATIVE (Neg)
[2024-12-05 00:21] LABS: UA COLLECTION TYPE NON-SPECIFIED
[2024-12-05 00:22] LABS: BACTERIA,URINE NONE SEEN /HPF (Neg); RBC,URINE NONE SEEN /HPF (0-2); SQUAMOUS EPITHELIAL CELL,UR NONE SEEN /LPF (FEW); WBC,URINE NONE SEEN /HPF (0-4)
[2024-12-05 00:47] LABS: UA EOSINOPHILS NO EOS /HPF
[2024-12-05 00:53] LABS: TOTAL PROTEIN,URINE RANDOM 17.9 MG/DL
[2024-12-05 02:00] VITALS: BP 122/74; PULSE 74; RESP 12; TEMP 98.2; O2SAT 97
[2024-12-05 06:15] LABS: BASOPHILS # (AUTO) 0.1 X10'3 (0-0.2); BASOPHILS % (AUTO) 0.9 % (0-1); EOSINOPHILS # (AUTO) 0.2 X10'3 (0-0.9); EOSINOPHILS % (AUTO) 2.9 % (0-6); HEMATOCRIT 44.4 % (42.0-52.0); HEMOGLOBIN 14.9 g/dl (14.0-17.9); LYMPHOCYTES # (AUTO) 0.9 X10'3 (1.1-4.8); MEAN CORPUSCULAR HEMOGLOBIN 30.5 PG (27.0-31.0); MEAN CORPUSCULAR HGB CONC 33.6 g/dL (33.0-36.5); MEAN CORPUSCULAR VOLUME 90.9 FL (78-98); MEAN PLATELET VOLUME 7.5 FL (7.4-10.4); MONOCYTES # (AUTO) 0.4 X10'3 (0-0.9); MONOCYTES % (AUTO) 7.3 % (2-12); NEUTROPHILS # (AUTO) 4.6 X10'3 (1.8-7.7); NEUTROPHILS % (AUTO) 73.9 % (42-75); PLATELET COUNT 136 X10'3 (140-440); RED BLOOD COUNT 4.88 X10'6 (4.70-6.10); RED CELL DISTRIBUTION WIDTH 15.2 % (11.5-14.5); WHITE BLOOD COUNT 6.2 X10'3 (4.5-11.0)
[2024-12-05 06:54] LABS: ALANINE AMINOTRANSFERASE 50 U/L (12-78); ALBUMIN 3.2 G/DL (3.4-5.0); ALBUMIN/GLOBULIN RATIO 1.2 (1.1-1.5); ALKALINE PHOSPHATASE 87 IU/L (46-116); ANION GAP 8 (8-16); ASPARTATE AMINO TRANSFERASE 32 U/L (10-37); BLOOD UREA NITROGEN 22 MG/DL (7-18); BUN/CREATININE RATIO 15.8 (10.0-20.0); CALCIUM 8.5 MG/DL (8.5-10.1); CHLORIDE 105 MMOL/L (99-107); CREATININE 1.39 MG/DL (0.60-1.10); GLUCOSE 89 MG/DL (70-104); POTASSIUM 4.5 MMOL/L (3.5-5.1); SODIUM 141 MMOL/L (135-145); TOTAL CARBON DIOXIDE 28.5 MMOL/L (24-32); TOTAL PROTEIN 5.9 G/DL (6.4-8.2); eCRCL 44 ML/MIN; eGFR 49 ML/MIN
[2024-12-05 07:00] VITALS: RESP 19; O2SAT 96
[2024-12-05 07:52] VITALS: BP_SYST 128; PULSE 70
[2024-12-05] MEDS ORDERED: AMI200T PO (10:08)
[2024-12-05] MEDS ORDERED: APIX2.5T PO (10:08)
[2024-12-05] MEDS ORDERED: ATOR20TA66 PO (10:08)
[2024-12-05] MEDS ORDERED: METO-395 PO (10:08)
[2024-12-05] MEDS ORDERED: EMPA10TA PO (10:08)
[2024-12-05 10:23] VITALS: O2SAT 96
[2024-12-05] MEDS ORDERED: METO200T37 PO (10:55)
[2024-12-05] MEDS ORDERED: ATOR-2 PO (13:50)
--- NOTE | 2024-12-05 17:39 | DISCHARGE SUMMARY-Residence ---
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 Brown, Cardiology Complications: None Condition on DC: Stable New Medications: Atorvastatin Calcium (Atorvastatin Calcium) 80 Mg Tablet 1 TAB PO DAILY for 30 Days, #30 TAB 0 Refills Amiodarone Hcl (Cordarone) 200 Mg Tablet 400 MG PO BID for 30 Days, #60 TAB Take 400mg twice a day for 2 weeks, then continue 400mg once a day Apixaban (Eliquis) 2.5 Mg Tablet 2.5 MG PO BID for 30 Days, #60 TAB Atorvastatin Calcium (Atorvastatin Calcium) 20 Mg Tablet 80 MG PO DAILY for 30 Days, #30 TAB Empagliflozin (Jardiance) 10 Mg Tablet 10 MG PO DAILY for 30 Days, #30 TAB Metoprolol Succinate (Metoprolol Succinate) 200 Mg Tab.sr.24h 1 TAB PO BID for 30 Days, #60 TAB 0 Refills Continued Medications: Aspirin (Aspir 81) 81 Mg Tablet.dr 1 TAB PO DAILY for 30 Days, #30 TAB Furosemide (Furosemide) 20 Mg Tablet 1 TAB PO DAILY Lisinopril (Lisinopril) 20 Mg Tablet 1 TAB PO DAILY Sacubitril/Valsartan (Entresto 24 mg-26 mg Tablet) 24 Mg-26 Mg Tablet 1 TAB PO BID Spironolactone (Spironolactone) 25 Mg Tablet 1 TAB PO DAILY Discontinued Medications: Apixaban (Eliquis) 5 Mg Tablet 1 TAB PO BID Atorvastatin Calcium (Atorvastatin Calcium) 20 Mg Tablet 1 TAB PO DAILY Discharge Summary: Patient was admitted with the following HPI: Patient is an 84-year-old male with history of atrial fibrillation, heart failure with reduced ejection fraction, mitral valve insufficiency and hyperlipidemia who came to the ED due to palpitations. Patient reports that today while mowing the lawn he presented with severe fatigue and shortness of breath along with lightheadedness. He checked his vitals are home and noticed to have a pulse of 141 and a systolic blood pressure of 75 reason why he decided to come to the ED. in ED, patient was initially started on Cardizem, but in view of hypotension this was discontinued. Dr. Brown evaluated the patient in ED and recommended starting amiodarone drip. Of note, patient has been taking flecainide for several years and was switched to amiodarone three days ago due to severely reduced EF, however, patient did not start the medication yet. Hospital course: Patient was initially admitted with diagnosis of atrial fibrillation with rapid ventricular response, and started on amiodarone drip; metoprolol dose was also increased initially from 25 mg to 50 mg a day. ICD was initially interrogated which showed episode of ventricular tachycardia without enough rate to trigger a shock. During hospital course patient initially had brief periods of paced rhythm at 60 beats per minute. But the majority of time patient remained of ventricular paced rhythm at 120 beats per minutes, with episodes of ventricular tachycardia up to 180-200 beats per minute. Pacemaker was interrogated two more times and it it was determined that patient was in atrial tachycardia as underlying rhythm, tracking rhythm was decreased to 100 beats per minute and shocking rate was decreased to 180 beats per minute. After this, heart rate remained paced at 60 beats per minute. In addition, amiodarone drip was continued and eventually switched to p.o. and metoprolol was increased up to 200 mg b.i.d. Today, patient was stable and asymptomatic with normal hemodynamic. An echocardiogram did show reduced EF to 10-15%, therefore GDMT was optimized. Patient will be discharged home today. Laboratory Tests Test 12/04/24 05:53 12/05/24 00:00 12/05/24 05:51 White Blood Count 7.6 X10'3 6.2 X10'3 Red Blood Count 4.97 X10'6 4.88 X10'6 Hemoglobin 15.2 g/dl 14.9 g/dl Hematocrit 45.1 % 44.4 % Mean Corpuscular Volume 90.8 FL 90.9 FL Mean Corpuscular Hemoglobin 30.6 PG 30.5 PG Mean Corpuscular Hemoglobin Concent 33.7 g/dL 33.6 g/dL Red Cell Distribution Width 16.0 % 15.2 % Platelet Count 139 X10'3 136 X10'3 Mean Platelet Volume 7.7 FL 7.5 FL Neutrophils (%) (Auto) 75.5 % 73.9 % Lymphocytes (%) (Auto) 14.9 % 15.0 % Monocytes (%) (Auto) 6.8 % 7.3 % Eosinophils (%) (Auto) 2.0 % 2.9 % Basophils (%) (Auto) 0.8 % 0.9 % Neutrophils # (Auto) 5.7 X10'3 4.6 X10'3 Lymphocytes # (Auto) 1.1 X10'3 0.9 X10'3 Monocytes # (Auto) 0.5 X10'3 0.4 X10'3 Eosinophils # (Auto) 0.2 X10'3 0.2 X10'3 Basophils # (Auto) 0.1 X10'3 0.1 X10'3 CBC Comment Sodium Level 141 MMOL/L 141 MMOL/L Potassium Level 4.7 MMOL/L 4.5 MMOL/L Chloride Level 110 MMOL/L 105 MMOL/L Carbon Dioxide Level 22.2 MMOL/L 28.5 MMOL/L Anion Gap 9 8 Blood Urea Nitrogen 22 MG/DL 22 MG/DL Creatinine 1.27 MG/DL 1.39 MG/DL Estimated GFR/1.73 m2 54 ML/MIN 49 ML/MIN BUN/Creatinine Ratio 17.3 15.8 Glucose Level 125 MG/DL 89 MG/DL Calcium Level 8.6 MG/DL 8.5 MG/DL Magnesium Level 2.2 MG/DL 2.0 MG/DL Total Bilirubin 0.4 MG/DL 1.0 MG/DL Aspartate Amino Transf (AST/SGOT) 36 U/L 32 U/L Alanine Aminotransferase (ALT/SGPT) 52 U/L 50 U/L Alkaline Phosphatase 82 IU/L 87 IU/L Total Protein 5.9 G/DL 5.9 G/DL Albumin 3.1 G/DL 3.2 G/DL Globulin 2.8 G/DL 2.7 G/DL Albumin/Globulin Ratio 1.1 1.2 Chemistry Comments Urine Specimen Description Non-specified Urine Color Yellow Urine Clarity Clear Urine pH 6.0 Urine Specific [place] 1.010 Urine Protein Negative mg/dl Urine Glucose (UA) >=1000 mg/dl Urine Ketones Negative mg/dl Urine Occult Blood Negative Urine Nitrite Negative Urine Bilirubin Negative Urine Urobilinogen 1.0 E.U/dL Urine Leukocyte Esterase Negative Urine RBC None seen /HPF Urine WBC None seen /HPF Urine Squamous Epithelial Cells None seen /LPF Urine Bacteria None seen /HPF Urine Culture Indicated Not ind Volume Urine Centrifuged 10 ml Urine Eosinophils No eos /HPF Urine Random Creatinine 47.0 MG/DL Urine Random Total Protein 17.9 MG/DL Urine Random Sodium 85 MEQ/L Urine Random Potassium 21 MEQ/L Urine Random Urea 570.0 MG/DL Urine Comment Imaging: Echocardiogram: The LV is dilated in size with severely reduced function. Severe global hypo- to akinetic segmental abnormalities. Mild concentric hypertrophy. Overall LVEF appears to be around 10-15%. Right ventricle is severely dilated with reduced function. Estimated PA systolic pressure is 33 mmHg. Severe Biatrial enlargement. Trileaflet AV appears sclerotic without stenosis. Trace to mild insufficiency. 31 mm Abbot Epic Plus MVR appears to be well seated and functioning normally. Trace regurgitation. Peak/Mean gradients of 12/3 mmHg and a peak velocity of 174.0 cm/s. TV appears structurally normal with mild regurgitation. Normal pericardium. No pericardial effusion seen. Chest x-ray: Cardiomegaly with pulmonary vascular congestion / interstitial pulmonary edema. Discharge physical exam: Vital Signs Date Time Temp Pulse Resp B/P (MAP) Pulse Ox O2 Delivery O2 Flow Rate FiO2 12/05/24 10:23 71 96 12/05/24 07:00 19 Room Air 12/05/24 02:00 98.2 122/74 (90) 12/04/24 08:00 0.0 General: awake, alert oriented to place, time, and person HEENT: No pallor present, no icterus, moist mucous membranes Neck: No masses and tenderness Resp: Unlabored. Lungs clear to auscultation bilaterally. Chest: Midchest surgical scar. PM palpable in left hemithorax Heart normal rate and rhythm, normal S1 and S2 without murmur, rub or gallop. No JVD Abdomen: Soft and non tender no organomegaly, no guarding and rigidity, bowel sounds present Neuro: No weakness in the upper and lower limb muscles, power of the muscles 5/5 bilateral upper and lower muscles, knee reflex present bilaterally. Cranial nerves intact Extremities: No LE edema. No cyanosis or clubbing Skin: Warm and Dry. No lesions Patient will be discharged with the following recommendations: We started some new medications for your heart. Please take as prescribed. We have sent a 30-day supply to your pharmacy Follow up with Dr Klein within two weeks Follow up with your PCP within one week and discuss following up on your kidney function Please return to the ED if you experience any chest pain, shorness of breath, lightheadedness, palpitations, or any other concerning symptoms *Problems/Diagnosis: (1) Ventricular tachycardia Status: Acute (2) Atrial flutter with rapid ventricular response Status: Acute Total Time Spent on D/C: > 30 Minutes Date of Service: December 05, 2024 Billing Provider: ROBIN MCCLAIN MD, LEONARDO LUIS December 05, 2024 17:39
== END 2024-12-05 11:26 | disposition home or self-care (01) | DRG 280 ==
LOC: ER 10:44 → ED HOLD 13:52 → PCU 3S 17:10
PROVIDERS: ADMIT Family Medicine; ATTEND Family Medicine
PROC: 4B02XTZ Measurement of Cardiac Defibrillator, External Approach (ICD-10-PCS; principal; 2024-12-02)
DX: I48.91 Unspecified atrial fibrillation (principal); I50.23 Acute on chronic systolic (congestive) heart failure; I21.A1 Myocardial infarction type 2; N17.0 Acute kidney failure with tubular necrosis; R57.0 Cardiogenic shock; H54.62 Unqualified visual loss, left eye, normal vision right eye; I48.92 Unspecified atrial flutter; I95.9 Hypotension, unspecified; I47.19 Other supraventricular tachycardia; I42.8 Other cardiomyopathies; N18.9 Chronic kidney disease, unspecified; I25.10 Atherosclerotic heart disease of native coronary artery without angina pectoris; Z79.01 Long term (current) use of anticoagulants; Z79.82 Long term (current) use of aspirin; Z79.899 Other long term (current) drug therapy; Z95.2 Presence of prosthetic heart valve; Z95.810 Presence of automatic (implantable) cardiac defibrillator; I47.20 Ventricular tachycardia, unspecified
CPT/HCPCS: 36415; 71045; 80053; 80061; 81001; 82570; 83735; 83880; 84133; 84156; 84300; 84439; 84443; 84484; 84540; 85025; 85610; 87081; 87207; 93005; 93306; 96374; 96375; 97161; 97530; 99291; G0378; J0282; J3490; J7030